=== PATIENT | female | born 1940 | race Asian ===

== ENCOUNTER 2017-10-09 03:58 | Emergency (ER) | payer OTHER ==
[~2017-10-09] VITALS: Ht 154.9 cm; Wt 62.7 kg
[~2017-10-09 03:58] MED LIST: AMOX500C PO; CYPR4TAB PO; Z.0.NO CURRENT MEDS
[2017-10-09 04:00] VITALS: BP 196/79; PULSE 80; RESP 16; TEMP 97.9; O2SAT 97
[2017-10-09] MEDS ORDERED: LISI2.5T3 PO (04:06)
[2017-10-09 04:31] VITALS: BP 190/86; PULSE 73; RESP 14; O2SAT 100
--- NOTE | 2017-10-09 05:02 | RADRPT ---
EXAM DATE/TIME: 10/09/2017 04:52 [facility] COMPARISON: No previous studies available for comparison. INDICATIONS : Cough and weakness MEDICAL HISTORY : Hypercholesterolemia. SURGICAL HISTORY : Hysterectomy. Pacemaker. ENCOUNTER: Initial ACUITY: 1 day PAIN SCORE: 7/10 LOCATION: Bilateral chest FINDINGS: Minimal left base atelectasis. No infiltrate, effusion or pneumothorax. Heart size normal. CONCLUSION: Trace left base atelectasis. Otherwise negative. Alberto Brizuela MD on October 09, 2017 at 5:01 Board Certified Radiologist. This report was verified electronically.
--- NOTE | 2017-10-09 05:14 | PD ---
HPI Chief Complaint: Cold / Flu Symptoms Time Seen by Provider: 04:36 Travel History International Travel<30 days: No Contact w/Intl Traveler<30days: No Traveled to known affect area: No History of Present Illness HPI 77 years old female complains of general malaise and weakness and elevated blood pressure. Patient has history hypertension. Patient was seen by personal physician in the past and was given prescription for lisinopril 10 mg daily. Patient states that she took lisinopril and has side effect to it. Patient stopped taking it. Patient started taking lisinopril again yesterday because elevated blood pressure. Patient denies any headache. Patient denies earache. Patient states that she has sore throat since yesterday. Patient started having a dry cough since yesterday also. Patient denies nausea vomiting. Patient states that she has intermittent left-sided upper quadrant abdominal pain and epigastric abdominal pain for the past few months. Patient denies any pain radiation. Patient states that she has reflux symptoms also. Patient denies any nausea vomiting diarrhea. Patient denies any dysuria or frequency. Patient denies any vaginal discharge or bleeding. Patient denies any back pain. PFSH Past Medical History Blood Disorders: No Cancer: No Cardiovascular Problems: No High Cholesterol: Yes Endocrine: No Immune Disorder: No Musculoskeletal: No Neurologic: No Psychiatric: No Reproductive: No Respiratory: No Menopausal: Yes : 2 Para: 2 Past Surgical History AICD: No Arteriovenous Shunt: No Hysterectomy: Yes Insulin Pump: No Joint Replacement: No Pacemaker: No Other Surgery: No Social History Alcohol Use: No Tobacco Use: No Substance Use: No Allergies-Medications (Allergen,Severity, Reaction): Coded Allergies: No Known Allergies (Verified , 08/10/13) Reported Meds & Prescriptions Reported Meds & Active Scripts Active No Active Prescriptions or Reported Medications Review of Systems General / Constitutional: No: Fever Eyes: No: Visual changes HENT: No: Headaches Cardiovascular: No: Chest Pain or Discomfort Respiratory: Positive: Cough, No: Shortness of Breath Gastrointestinal: Positive: Abdominal Pain Genitourinary: No: Dysuria Musculoskeletal: No: Pain Skin: No Rash Neurologic: No: Weakness Psychiatric: No: Depression Endocrine: No: Polydipsia Hematologic/Lymphatic: No: Easy Bruising Physical Exam Narrative GENERAL: Well-nourished, well-developed patient. SKIN: Focused skin assessment warm/dry. HEAD: Normocephalic. EYES: No scleral icterus. No injection or drainage. NECK: Supple, trachea midline. No JVD or lymphadenopathy. CARDIOVASCULAR: Regular rate and rhythm without murmurs, gallops, or rubs. RESPIRATORY: Breath sounds equal bilaterally. No accessory muscle use. GASTROINTESTINAL: Abdomen soft, nondistended. Patient has mild tenderness on palpation left upper quadrant of the abdomen. No rebound tenderness. No mass. MUSCULOSKELETAL: No cyanosis, or edema. BACK: Nontender without obvious deformity. No CVA tenderness. Neurologic exam normal. Data Data Last Documented VS Vital Signs Date Time Temp Pulse Resp B/P (MAP) Pulse Ox O2 Delivery O2 Flow Rate FiO2 10/09/17 05:36 72 14 166/72 (103) 99 Room Air 10/09/17 04:00 97.9 Orders Orders Complete Blood Count With Diff (10/09/17 04:44) Comprehensive Metabolic Panel (10/09/17 04:44) Lipase (10/09/17 04:44) Urinalysis - C+S If Indicated (10/09/17 04:44) Chest, Single Ap (10/09/17 04:44) Iv Access Insert/Monitor (10/09/17 04:44) Ecg Monitoring (10/09/17 04:44) Oximetry (10/09/17 04:44) Influenzae A/B Antigen (10/09/17 04:47) Pantoprazole (Protonix) (10/09/17 05:15) Al-Mag Hy-Si 40-40-4 Mg/Ml Liq (Mag-Al P (10/09/17 05:15) Rqziv-Trjezg-Yocmsm-Pb Liq ( Liq (10/09/17 05:15) Amlodipine (Norvasc) (10/09/17 05:15) Urine Culture (10/09/17 04:49) Labs Laboratory Tests Test 10/09/17 04:49 White Blood Count 7.5 TH/MM3 Red Blood Count 4.20 MIL/MM3 Hemoglobin 12.9 GM/DL Hematocrit 37.6 % Mean Corpuscular Volume 89.5 FL Mean Corpuscular Hemoglobin 30.7 PG Mean Corpuscular Hemoglobin Concent 34.3 % Red Cell Distribution Width 13.6 % Platelet Count 255 TH/MM3 Mean Platelet Volume 7.0 FL Neutrophils (%) (Auto) 74.8 % Lymphocytes (%) (Auto) 19.2 % Monocytes (%) (Auto) 4.5 % Eosinophils (%) (Auto) 1.3 % Basophils (%) (Auto) 0.2 % Neutrophils # (Auto) 5.6 TH/MM3 Lymphocytes # (Auto) 1.4 TH/MM3 Monocytes # (Auto) 0.3 TH/MM3 Eosinophils # (Auto) 0.1 TH/MM3 Basophils # (Auto) 0.0 TH/MM3 CBC Comment DIFF FINAL Differential Comment Urine Color LIGHT-YELLOW Urine Turbidity CLEAR Urine pH 7.0 Urine Specific [place] 1.010 Urine Protein TRACE mg/dL Urine Glucose (UA) NEG mg/dL Urine Ketones NEG mg/dL Urine Occult Blood NEG Urine Nitrite POS Urine Bilirubin NEG Urine Urobilinogen LESS THAN 2.0 MG/DL Urine Leukocyte Esterase MOD Urine RBC 2 /hpf Urine WBC 8 /hpf Urine Squamous Epithelial Cells 1 /hpf Urine Bacteria FEW /hpf Microscopic Urinalysis Comment CULTURE INDICATED Blood Urea Nitrogen 12 MG/DL Creatinine 0.67 MG/DL Random Glucose 125 MG/DL Total Protein 8.4 GM/DL Albumin 3.9 GM/DL Calcium Level 8.3 MG/DL Alkaline Phosphatase 76 U/L Aspartate Amino Transf (AST/SGOT) 32 U/L Alanine Aminotransferase (ALT/SGPT) 28 U/L Total Bilirubin 0.4 MG/DL Sodium Level 133 MEQ/L Potassium Level 3.5 MEQ/L Chloride Level 97 MEQ/L Carbon Dioxide Level 27.6 MEQ/L Anion Gap 8 MEQ/L Estimat Glomerular Filtration Rate 86 ML/MIN Lipase 128 U/L [facility] Medical Decision Making Medical Screen Exam Complete: Yes Emergency Medical Condition: Yes Interpretation(s) Last Impressions Chest X-Ray 10/09/17 0444 Signed Impressions: Service Date/Time: Monday, October 09, 2017 04:52 - CONCLUSION: Trace left base atelectasis. Otherwise negative. Alberto Brizuela MD 5:50 AM. CBC within normal limit. Sodium 133. CMP otherwise within normal limit. UA positive with WBC and few bacteria. Influenza AB antigen negative. Differential Diagnosis Differential diagnosis including URI, pharyngitis, bronchitis, pneumonia, gastritis, PUD, pancreatitis, colitis, UTI, pyelonephritis, nephrolithiasis. Narrative Course 77 years old female with sore throat, coughing, generalized malaise and weakness , recurrent left upper quadrant abdominal pain. Diagnosis Primary Impression: Viral syndrome Additional Impressions: UTI (urinary tract infection) Qualified Codes: N30.00 - Acute cystitis without hematuria Gastritis Qualified Codes: K29.00 - Acute gastritis without bleeding Patient Instructions: General Instructions Additional Instructions: Take medications as directed. Follow-up with personal physician. Return if worse. Med/Other Pt SpecificInfo: Prescription(s) given Scripts Sucralfate (Carafate) 1 Gram Tab 1 GM PO QID for Ulcer Prevention, #120 TAB 0 Refills On empty stomach Prov: Phil Goldstein MD 10/09/17 Pantoprazole (Protonix) 40 Mg Tab 40 MG PO DAILY for Reflux, #30 TAB 0 Refills Prov: Phil Goldstein MD 10/09/17 Ciprofloxacin (Cipro) 500 Mg Tab 500 MG PO BID for Infection, #14 TAB 0 Refills Prov: Phil Goldstein MD 10/09/17 Disposition: 01 DISCHARGE HOME Condition: Stable Phil Goldstein MD Oct 09, 2017 05:14
[2017-10-09] MEDS ORDERED: ATROPINE/SCOPOLAM/HYOSCYAM/PB ELIXIR 10 ML CUP PO ONE (05:15)
[2017-10-09] MEDS ORDERED: PANTOPRAZOLE SOD 40 MG DELAYED RELEASE TAB PO ONE (05:15)
[2017-10-09] MEDS ORDERED: ALUMINUM/MAGNESIUM/SIMETH 30 ML CUP PO ONE (05:15)
[2017-10-09 05:20] LABS: BACTERIA, URINE FEW /hpf; BILIRUBIN, URINE NEG (NEG); BLOOD, URINE NEG (NEG); GLUCOSE,URINE NEG (NEG); KETONE, URINE NEG (NEG); NITRITE,URINE POS (NEG); SQUAMOUS EPITHELIAL CELL URINE 1 /hpf (0-5); URINE COLOR LIGHT-YELLOW (YELLW/STRAW); URINE LEUKOCYTE ESTERASE MOD (NEG)
[2017-10-09 05:22] LABS: AUTOMATED NEUTROPHIL # 5.6 TH/MM3 (1.8-7.7); BASOPHIL % 0.2 % (0.0-2.0); EOSINOPHIL # 0.1 TH/MM3 (0-0.4); EOSINOPHIL % 1.3 % (0.0-4.0); HEMATOCRIT 37.6 % (35.0-46.0); HEMOGLOBIN 12.9 GM/DL (11.6-15.3); LYMPH % 19.2 % (9.0-44.0); LYMPHOCYTE # 1.4 TH/MM3 (1.0-4.8); MEAN CELL VOLUME 89.5 FL (80.0-100.0); MEAN CORPUSCULAR HEMOGLOBIN 30.7 PG (27.0-34.0); MEAN CORPUSCULAR HGB CONC 34.3 % (32.0-36.0); MONO % 4.5 % (0.0-8.0); MONOCYTE # 0.3 TH/MM3 (0-0.9); NEUT % 74.8 % (16.0-70.0); PLATELET COUNT 255 TH/MM3 (150-450); RED CELL DISTRIBUTION WIDTH 13.6 % (11.6-17.2); WHITE BLOOD COUNT 7.5 TH/MM3 (4.0-11.0)
[2017-10-09 05:34] LABS: ALBUMIN 3.9 GM/DL (3.4-5.0); AST (GOT) 32 U/L (15-37); BICARBONATE 27.6 MEQ/L (21.0-32.0); BLOOD UREA NITROGEN 12 MG/DL (7-18); CALCIUM 8.3 MG/DL (8.5-10.1); CHLORIDE 97 MEQ/L (98-107); CREATININE 0.67 MG/DL (0.50-1.00); GLOMERULAR FILTRATION RATE 86 ML/MIN (>89); GLUCOSE,RANDOM 125 MG/DL (74-106); LIPASE 128 U/L (73-393); SODIUM (NA) 133 MEQ/L (136-145)
[2017-10-09 05:36] VITALS: BP 166/72; PULSE 72; RESP 14; O2SAT 99
[2017-10-09 05:36] LABS: ALT (GPT) 28 U/L (10-53)
[2017-10-09 05:37] LABS: ALKALINE PHOSPHATASE 76 U/L (45-117); TOTAL BILIRUBIN ADULT 0.4 MG/DL (0.2-1.0); TOTAL PROTEIN 8.4 GM/DL (6.4-8.2)
[2017-10-09] MEDS ORDERED: CARA1TAB6 PO (06:04)
[2017-10-09] MEDS ORDERED: CIPR-9 PO (06:04)
[2017-10-09] MEDS ORDERED: PROT40TA PO (06:04)
== END 2017-10-09 06:21 | disposition home or self-care (01) ==
LOC: NEPC 03:58
DX: B34.9 Viral infection, unspecified (principal); N30.00 Acute cystitis without hematuria; B96.20 Unspecified Escherichia coli [E. coli] as the cause of diseases classified elsewhere; K29.00 Acute gastritis without bleeding; I10 Essential (primary) hypertension; E78.00 Pure hypercholesterolemia, unspecified
CPT/HCPCS: 71010; 80053; 81001; 83690; 85025; 87077; 87086; 87186; 87804; 99284

== ENCOUNTER 2017-10-13 04:07 | Observation (INO) | payer OTHER ==
[~2017-10-13] VITALS: Ht 154.9 cm; Wt 63.0 kg
[2017-10-13] VITALS (9 sets, daily range): BP systolic 90–212; BP diastolic 45–86; PULSE 73–110; RESP 16–18; TEMP 97.8–99.3; O2SAT 97–100
[~2017-10-13 04:07] MED LIST changes: -AMOX500C PO; +CARA1TAB6 PO; +CIPR-9 PO; -CYPR4TAB PO; +PROT40TA PO; -Z.0.NO CURRENT MEDS
[2017-10-13] MEDS ORDERED: SODIUM CHLORIDE 0.9% FLUSH 10 ML FLUSH IVF PRN (04:45)
[2017-10-13] MEDS ORDERED: hydrALAZINE HCL 20 MG/ML VIAL IV PUSH ONE (05:15)
[2017-10-13 05:16] LABS: AUTOMATED NEUTROPHIL # 4.8 TH/MM3 (1.8-7.7); BASOPHIL % 0.3 % (0.0-2.0); EOSINOPHIL # 0.1 TH/MM3 (0-0.4); HEMATOCRIT 38.8 % (35.0-46.0); HEMOGLOBIN 13.3 GM/DL (11.6-15.3); LYMPH % 24.1 % (9.0-44.0); LYMPHOCYTE # 1.8 TH/MM3 (1.0-4.8); MEAN CELL VOLUME 89.7 FL (80.0-100.0); MEAN CORPUSCULAR HEMOGLOBIN 30.7 PG (27.0-34.0); MEAN CORPUSCULAR HGB CONC 34.2 % (32.0-36.0); MEAN PLATELET VOLUME 7.1 FL (7.0-11.0); MONO % 8.3 % (0.0-8.0); MONOCYTE # 0.6 TH/MM3 (0-0.9); NEUT % 65.3 % (16.0-70.0); PLATELET COUNT 268 TH/MM3 (150-450); RED BLOOD COUNT 4.33 MIL/MM3 (4.00-5.30); RED CELL DISTRIBUTION WIDTH 13.2 % (11.6-17.2); WHITE BLOOD COUNT 7.3 TH/MM3 (4.0-11.0)
--- NOTE | 2017-10-13 05:26 | PD ---
HPI Chief Complaint: Cardiac Complaint Time Seen by Provider: 04:21 Travel History International Travel<30 days: No Contact w/Intl Traveler<30days: No Traveled to known affect area: No History of Present Illness HPI This is a 77-year-old female history of hypertension, presents today with complaints of high blood pressure and palpitations. The patient was seen here last week for the same thing. At that time she was started on amlodipine which brought her blood pressure down. Recommendation was that she follow up with her primary care doctor for further blood pressure control. The patient denies any chest pressure chest pain. The patient reports a pulling sensation in her abdomen but states that that's been present for 2 years. There is no dizziness or headache. There is no numbness or tingling to her extremities. The patient was prescribed lisinopril) primary care physician however was taken off of it because her blood pressure had been normal. She has not wanted to restart her lisinopril. There are no other complaints time my examination. PFSH Past Medical History Blood Disorders: No Cancer: No Cardiovascular Problems: No High Cholesterol: Yes Endocrine: No Hypertension: Yes Immune Disorder: No Musculoskeletal: No Neurologic: No Psychiatric: No Reproductive: No Respiratory: No ?: Not Menopausal: Yes : 2 Para: 2 Past Surgical History AICD: No Arteriovenous Shunt: No Hysterectomy: Yes Insulin Pump: No Joint Replacement: No Pacemaker: No Other Surgery: No Social History Alcohol Use: No Tobacco Use: No Substance Use: No Allergies-Medications (Allergen,Severity, Reaction): Coded Allergies: No Known Allergies (Verified Allergy, Unknown, 10/13/17) Reported Meds & Prescriptions Reported Meds & Active Scripts Active Carafate (Sucralfate) 1 Gram Tab 1 Gm PO QID On empty stomach Protonix (Pantoprazole Sodium) 40 Mg Tab 40 Mg PO DAILY Review of Systems Except as stated in HPI: all other systems reviewed are Neg General / Constitutional: No: Fever, Chills HENT: No: Headaches, Lightheadedness Cardiovascular: Positive: Palpitations, No: Chest Pain or Discomfort Respiratory: No: Cough, Shortness of Breath Gastrointestinal: Positive: Abdominal Pain (tightening sensation to the abdomen 2 year), No: Nausea, Vomiting Genitourinary: No: Frequency, Dysuria Musculoskeletal: No: Weakness, Pain Neurologic: No: Weakness, Dizziness, Headache, Change in Mentation Physical Exam Narrative GENERAL: Well developed well-nourished female in no acute respiratory distress. SKIN: Focused skin assessment warm/dry. HEAD: Atraumatic. Normocephalic. EYES: Extraocular muscles were intact.. No scleral icterus. No injection or drainage. ENT: No nasal bleeding or discharge. Mucous membranes pink and moist. NECK: Trachea midline. Supple. CARDIOVASCULAR: Regular rate and rhythm. No murmur appreciated. RESPIRATORY: No accessory muscle use. Clear to auscultation. Breath sounds equal bilaterally. GASTROINTESTINAL: Abdomen soft, non-tender, nondistended. Hepatic and splenic margins not palpable. MUSCULOSKELETAL: No obvious deformities. No clubbing. No cyanosis. No edema. NEUROLOGICAL: Awake and alert. No obvious cranial nerve deficits. Motor grossly within normal limits. Normal speech. Data Data Last Documented VS Vital Signs Date Time Temp Pulse Resp B/P (MAP) Pulse Ox O2 Delivery O2 Flow Rate FiO2 10/13/17 06:00 97.8 87 16 90/45 (60) 100 Room Air Orders Orders Basic Metabolic Panel (Bmp) (10/13/17 04:44) Ckmb (Isoenzyme) Profile (10/13/17 04:44) Complete Blood Count With Diff (10/13/17 04:44) Magnesium (Mg) (10/13/17 04:44) Prothrombin Time / Inr (Pt) (10/13/17 04:44) Act Partial Throm Time (Ptt) (10/13/17 04:44) Troponin I (10/13/17 04:44) Chest, Single Ap (10/13/17 04:44) Ecg Monitoring (10/13/17 04:44) Bilateral Bp Monitoring (10/13/17 04:44) Iv Access Insert/Monitor (10/13/17 04:44) Oximetry (10/13/17 04:44) Oxygen Administration (10/13/17 04:44) Sodium Chloride 0.9% Flush (Ns Flush) (10/13/17 04:45) Hydralazine Inj (Apresoline Inj) (10/13/17 05:15) CKMB (10/13/17 04:50) CKMB% (10/13/17 04:50) Sodium Chlor 0.9% 1000 Ml Inj (Ns 1000 M (10/13/17 06:15) Place In Observation (10/13/17 ) Vital Signs (Adult) Q4H (10/13/17 06:05) Activity Oob With Assistance (10/13/17 06:05) Diet Heart Healthy (10/13/17 Breakfast) Sodium Chloride 0.9% Flush (Ns Flush) (10/13/17 06:15) Sodium Chloride 0.9% Flush (Ns Flush) (10/13/17 09:00) Ondansetron Inj (Zofran Inj) (10/13/17 06:15) Basic Metabolic Panel (Bmp) (10/14/17 06:00) Complete Blood Count With Diff (10/14/17 06:00) Enoxaparin Inj (Lovenox Inj) (10/13/17 08:00) Acetaminophen (Tylenol) (10/13/17 06:15) Acetamin-Hydrocod 325-5 Mg ([place] 5-325 (10/13/17 06:15) Naloxone Inj (Narcan Inj) (10/13/17 06:15) Docusate Sodium-Senna (Ambar-Colace) (10/13/17 09:00) Magnesium Hydroxide Liq (Milk Of Magnesi (10/13/17 06:15) Sennosides (Senokot) (10/13/17 06:15) Bisacodyl Supp (Dulcolax Supp) (10/13/17 06:15) Admit Order (Ed Use Only) (10/13/17 06:13) Pantoprazole (Protonix) (10/13/17 09:00) Sucralfate (Carafate) (10/13/17 09:00) Labs Laboratory Tests Test 10/13/17 04:50 White Blood Count 7.3 TH/MM3 Red Blood Count 4.33 MIL/MM3 Hemoglobin 13.3 GM/DL Hematocrit 38.8 % Mean Corpuscular Volume 89.7 FL Mean Corpuscular Hemoglobin 30.7 PG Mean Corpuscular Hemoglobin Concent 34.2 % Red Cell Distribution Width 13.2 % Platelet Count 268 TH/MM3 Mean Platelet Volume 7.1 FL Neutrophils (%) (Auto) 65.3 % Lymphocytes (%) (Auto) 24.1 % Monocytes (%) (Auto) 8.3 % Eosinophils (%) (Auto) 2.0 % Basophils (%) (Auto) 0.3 % Neutrophils # (Auto) 4.8 TH/MM3 Lymphocytes # (Auto) 1.8 TH/MM3 Monocytes # (Auto) 0.6 TH/MM3 Eosinophils # (Auto) 0.1 TH/MM3 Basophils # (Auto) 0.0 TH/MM3 CBC Comment DIFF FINAL Differential Comment Prothrombin Time 10.3 SEC Prothromb Time International Ratio 1.0 RATIO Activated Partial Thromboplast Time 26.2 SEC Blood Urea Nitrogen 13 MG/DL Creatinine 0.69 MG/DL Random Glucose 118 MG/DL Calcium Level 9.0 MG/DL Magnesium Level 2.0 MG/DL Sodium Level 134 MEQ/L Potassium Level 3.6 MEQ/L Chloride Level 98 MEQ/L Carbon Dioxide Level 26.5 MEQ/L Anion Gap 10 MEQ/L Estimat Glomerular Filtration Rate 83 ML/MIN Total Creatine Kinase 279 U/L Creatine Kinase MB 6.1 NG/ML Creatine Kinase MB % 2.2 % Troponin I LESS THAN 0.02 NG/ML MDM Medical Decision Making Medical Screen Exam Complete: Yes Emergency Medical Condition: Yes Differential Diagnosis Hypertensive urgency versus emergency versus ACS versus metabolic derangement Narrative Course 77-year-old female with history of hypertension, presents here for the second time this week for uncontrolled hypertension. The patient was seen last week by Dr. Goldstein and given amlodipine. At that time it seemed to decrease her blood pressure. She was encouraged to follow up with her primary care physician. She has not as of yet. The patient presents again today with uncontrolled hypertension. Patient has a history of chronic abdominal discomfort. She denies this pain but states that she feels a tugging sensation in her left upper abdomen. There is no focal deficits noted on exam. The patient has been given hydralazine, 20 mg I V times one dose. She's blood pressure did decrease into the 130s over 60s. Given the fact the patient has been here 2 times the last 5 days, she'll be admitted for blood pressure control. Case was discussed with Dr. Susan Harkins, who agrees with the observation admission and blood pressure control. Diagnosis Primary Impression: Uncontrolled hypertension Additional Impression: elevated CK MB. Admitting Information Admitting Physician Requests: Observation Guille Mayo MD Oct 13, 2017 05:26
--- NOTE | 2017-10-13 05:30 | RADRPT ---
EXAM DATE/TIME: 10/13/2017 04:55 [facility] COMPARISON: CHEST SINGLE AP, October 09, 2017, 4:52. INDICATIONS : Shortness of breath. MEDICAL HISTORY : Hypercholesterolemia. SURGICAL HISTORY : Hysterectomy. ENCOUNTER: Subsequent ACUITY: 4 - 6 days PAIN SCORE: 0/10 LOCATION: Bilateral chest FINDINGS: A single view of the chest demonstrates the lungs to be symmetrically aerated without evidence of mas s, infiltrate or effusion. The cardiomediastinal contours are unremarkable. Osseous structures are intact. CONCLUSION: No acute disease. Timothy Allen Jr., MD on October 13, 2017 at 5:29 Board Certified Radiologist. This report was verified electronically.
[2017-10-13 05:49] LABS: BICARBONATE 26.5 MEQ/L (21.0-32.0); BLOOD UREA NITROGEN 13 MG/DL (7-18); CHLORIDE 98 MEQ/L (98-107); CREATININE 0.69 MG/DL (0.50-1.00); GLOMERULAR FILTRATION RATE 83 ML/MIN (>89); GLUCOSE,RANDOM 118 MG/DL (74-106); SODIUM (NA) 134 MEQ/L (136-145)
[2017-10-13 05:54] LABS: TROPONIN I LESS THAN 0.02 NG/ML (0.02-0.05)
[2017-10-13 06:00] LABS: PROTHROMBIN TIME - PATIENT 10.3 SEC (9.8-11.6)
[2017-10-13] MEDS ORDERED: SENNOSIDES 8.6 MG TAB PO PRN (06:15)
[2017-10-13] MEDS ORDERED: SODIUM CHLORIDE 0.9% FLUSH 10 ML FLUSH IV FLUSH PRN (06:15)
[2017-10-13] MEDS ORDERED: BISACODYL 10 MG SUPP RECTAL PRN (06:15)
[2017-10-13] MEDS ORDERED: ONDANSETRON HCL 4 MG/2 ML VIAL IVP PRN (06:15)
[2017-10-13] MEDS ORDERED: SODIUM CHLOR 0.9% 1000 ML INJ 1,000 ML IV ONE (06:15)
[2017-10-13] MEDS ORDERED: MAGNESIUM HYDROXIDE SUSP 30 ML CUP PO PRN (06:15)
[2017-10-13] MEDS ORDERED: ACETAMINOPHEN/HYDROcodone 325 MG/5 MG TAB PO PRN (06:15)
[2017-10-13] MEDS ORDERED: NALOXONE HCL 0.4 MG/ML AMP IV PUSH PRN (06:15)
[2017-10-13] MEDS ORDERED: ACETAMINOPHEN 325 MG TAB PO PRN (06:15)
[2017-10-13] MEDS ORDERED: SUCRALFATE 1 GM TAB PO SCH (08:00)
--- NOTE | 2017-10-13 08:38 | HHI.HP ---
HPI Service [facility] Hospitalists Primary Care Physician Mark Roberts MD Admission Diagnosis uncontrolled hypertension, Diagnoses: Chief Complaint: Palpitations Nausea Travel History International Travel<30 Days: No Contact w/Intl Traveler <30 Da: No Traveled to Known Affected Are: No History of Present Illness Written by Mel Cassidy, acting as scribe for Dr. Farley on 10/13/17 at 08: 18. This is a 77yo female with a PMHX of hypertension medication noncompliant as patient states all medications "make her black out" who presents to [facility] ED with complaints of palpitations, nausea and elevated blood pressure. Patient states she was not feeling well yesterday. She's had a reductive cough for the past several weeks. She reports history she developed racing heartbeat and nausea. She began taking her blood pressure at home which she frequently does and was found have a systolic BP of 226 prompting her to come into the ED. She denies any associated chest pain or shortness of breath. She denies any episode of vomiting. She denies any dizziness, headache or vision changes. Additionally patient reports mild left-sided abdominal pain which has been present for 2 years and not associated with any complaints of diarrhea or constipation. Patient was evaluated in the ED on October 09 for viral syndrome and was prescribed ciprofloxacin. In the ED today, patient's blood pressure was 212/85 and she was given IV hydralazine with improvement in blood pressure and actually became hypotensive with a blood pressure of 90/45. She denies taking any qoab-xoy-thhercj cough medication, supplement or herbal medication. She has an appointment to see her primary care physician on Tuesday. Review of Systems Except as stated in HPI: all other systems reviewed are Neg Past Family Social History Past Medical History Hypertension Medication noncompliance Past Surgical History Hysterectomy Reported Medications Carafate (Sucralfate) 1 Gram Tab 1 Gm PO QID On empty stomach Protonix (Pantoprazole Sodium) 40 Mg Tab 40 Mg PO DAILY Allergies: Coded Allergies: No Known Allergies (Verified Allergy, Unknown, 10/13/17) Active Ordered Medications Current Medications Medications (Trade) Dose Ordered Sig/Delmer Route Start Time Stop Time Status Last Admin (NS Flush) 2 ml UNSCH PRN IV FLUSH 10/13/17 06:15 (NS Flush) 2 ml BID IV FLUSH 10/13/17 09:00 (Zofran Inj) 4 mg Q6H PRN IVP 10/13/17 06:15 (Lovenox Inj) 40 mg Q24H SQ 10/13/17 08:00 (Tylenol) 650 mg Q6H PRN PO 10/13/17 06:15 ([place] 5-325 Mg) 1 tab Q4H PRN PO 10/13/17 06:15 (Narcan Inj) 0.4 mg UNSCH PRN IV PUSH 10/13/17 06:15 (Ambar-Colace) 1 tab BID PO 10/13/17 09:00 (Milk Of Mag[place] Liq) 30 ml Q12H PRN PO 10/13/17 06:15 (Senokot) 17.2 mg Q12H PRN PO 10/13/17 06:15 (Dulcolax Supp) 10 mg DAILY PRN RECTAL 10/13/17 06:15 (Protonix) 40 mg DAILY PO 10/13/17 09:00 (Norvasc) 5 mg DAILY PO 10/13/17 09:00 Family History Hypertension Social History Patient denies any tobacco use, alcohol consumption or illicit drug use. Physical Exam Vital Signs Vital Signs Date Time Temp Pulse Resp B/P (MAP) Pulse Ox O2 Delivery O2 Flow Rate FiO2 10/13/17 07:04 97.9 97 18 127/59 (81) 99 10/13/17 06:52 10/13/17 06:34 94 16 125/59 (81) 97 Room Air 10/13/17 06:00 97.8 87 16 90/45 (60) 100 Room Air 10/13/17 05:34 87 16 136/59 (84) 100 Room Air 10/13/17 05:00 73 16 206/86 (126) 100 Room Air 10/13/17 04:10 97.9 95 16 212/85 (127) 99 Physical Exam GENERAL: This is a well-nourished, well-developed female patient, in no apparent distress. SKIN: No rashes, ecchymoses or lesions. Cool and dry. HEAD: Atraumatic. Normocephalic. No temporal or scalp tenderness. EYES: Pupils equal round and reactive. Extraocular motions intact. No scleral icterus. No injection or drainage. ENT: Nose without bleeding or purulent drainage. Throat without erythema, tonsillar hypertrophy or exudate. Uvula midline. Airway patent. NECK: Trachea midline. No lymphadenopathy. Supple, nontender, no meningeal signs. CARDIOVASCULAR: Regular rate and rhythm without murmurs, gallops, or rubs. RESPIRATORY: Clear to auscultation. Breath sounds equal bilaterally. No wheezes , rales, or rhonchi. GASTROINTESTINAL: Abdomen soft, non-tender, nondistended. No hepato-splenomegaly , or palpable masses. No guarding. MUSCULOSKELETAL: Extremities without clubbing, cyanosis, or edema. No joint tenderness, effusion, or edema noted. No calf tenderness. NEUROLOGICAL: Awake and alert. Cranial nerves II through XII grossly intact. Motor and sensory grossly within normal limits. Five out of 5 muscle strength in all muscle groups. No focal neurologic finding appreciated. Normal speech. Laboratory Laboratory Tests Test 10/13/17 04:50 White Blood Count 7.3 Red Blood Count 4.33 Hemoglobin 13.3 Hematocrit 38.8 Mean Corpuscular Volume 89.7 Mean Corpuscular Hemoglobin 30.7 Mean Corpuscular Hemoglobin Concent 34.2 Red Cell Distribution Width 13.2 Platelet Count 268 Mean Platelet Volume 7.1 Neutrophils (%) (Auto) 65.3 Lymphocytes (%) (Auto) 24.1 Monocytes (%) (Auto) 8.3 Eosinophils (%) (Auto) 2.0 Basophils (%) (Auto) 0.3 Neutrophils # (Auto) 4.8 Lymphocytes # (Auto) 1.8 Monocytes # (Auto) 0.6 Eosinophils # (Auto) 0.1 Basophils # (Auto) 0.0 CBC Comment DIFF FINAL Differential Comment Prothrombin Time 10.3 Prothromb Time International Ratio 1.0 Activated Partial Thromboplast Time 26.2 Blood Urea Nitrogen 13 Creatinine 0.69 Random Glucose 118 Calcium Level 9.0 Magnesium Level 2.0 Sodium Level 134 Potassium Level 3.6 Chloride Level 98 Carbon Dioxide Level 26.5 Anion Gap 10 Estimat Glomerular Filtration Rate 83 Total Creatine Kinase 279 Creatine Kinase MB 6.1 Creatine Kinase MB % 2.2 Troponin I LESS THAN 0.02 Result Diagram: 10/13/17 0450 10/13/17 045 Imaging Last Impressions Chest X-Ray 10/13/174 Signed Impressions: Service Date/Time: October 04:55 - CONCLUSION: No acute disease. MD Wagner Clements Jr. VTE Risk Assessment Wagner VTE Risk Assessment: Mod/High Risk (score >= 2) Caprini Risk Assessment Model Point Value = 1 Point Value = 2 Point Value = 3 Point Value = 5 Age 41-60 Minor surgery BMI > 25 kg/m2 Swollen legs Varicose veins or History of unexplained or recurrent spontaneous Oral contraceptives or hormone replacement Sepsis (< 1 month) Serious lung disease, including pneumonia (< 1 month) Abnormal pulmonary function Acute myocardial infarction Congestive heart failure (< 1 month) History of inflammatory bowel disease Medical patient at bed rest Age 61-74 Arthroscopic surgery Major open surgery (> 45 min) Laparoscopic surgery (> 45 min) Malignancy Confined to bed (> 72 hours) Immobilizing plaster cast Central venous access Age >= 75 History of VTE Family history of VTE Factor V Leiden Prothrombin [id number] Lupus anticoagulant Anticardiolipin antibodies Elevated serum homocysteine Heparin-induced thrombocytopenia Other congenital or acquired thrombophilia Stroke (< 1 month) Elective arthroplasty Hip, pelvis, or leg fracture Acute spinal cord injury (< 1 month) Prophylaxis Regimen Total Risk Factor Score Risk Level Prophylaxis Regimen 0-1 Low Early ambulation 2 Moderate Order ONE of the following: *Sequential Compression Device (SCD) *Heparin 5000 units SQ BID 3-4 Higher Order ONE of the following medications: *Heparin 5000 units SQ TID *Enoxaparin/Lovenox 40 mg SQ daily (WT < 150 kg, CrCl > 30 mL/min) *Enoxaparin/Lovenox 30 mg SQ daily (WT < 150 kg, CrCl > 10-29 mL/min) *Enoxaparin/Lovenox 30 mg SQ BID (WT < 150 kg, CrCl > 30 mL/min) AND/OR *Sequential Compression Device (SCD) 5 or more Highest Order ONE of the following medications: *Heparin 5000 units SQ TID (Preferred with Epidurals) *Enoxaparin/Lovenox 40 mg SQ daily (WT < 150 kg, CrCl > 30 mL/min) *Enoxaparin/Lovenox 30 mg SQ daily (WT < 150 kg, CrCl > 10-29 mL/min) *Enoxaparin/Lovenox 30 mg SQ BID (WT < 150 kg, CrCl > 30 mL/min) AND *Sequential Compression Device (SCD) Assessment and Plan Assessment and Plan 77yo female with a PMHX of hypertension medication noncompliant as patient states all medications "makes her black out" who presents to [facility] ED with complaints of palpitations, nausea and elevated blood pressure. Hypertensive urgency Hx of hypertension, medication noncompliant - BP improved following IV hydralazine given in the ED. Will begin Norvasc 5 mg daily. Continue to monitor BP and adjust treatment accordingly. Patient will need to follow-up with her primary care physician per her previously scheduled appointment on Tuesday. - patient with no complaints of chest pain. Troponin <0.02. Hyponatremia - mild, asymptomatic - treated with IVF - monitor DVT prophylaxis - Lovenox 40mg daily the above note was scribed by Ms. Mel Cassidy ( MILY). I attest that I had a [id number] encounter with the patient on the same day, and personally performed the physical exam and medical decision making and I reviewed the findings and plan with the patient and her son at the bedside. Discussed Condition With Patient, son Mel Cassidy Oct 13, 2017 08:38 Leeanne Farley MD Oct 13, 2017 10:02
[2017-10-13] MEDS: PANTOPRAZOLE SOD 40 MG DELAYED RELEASE TAB PO SCH (09:22)
[2017-10-13] MEDS: amLODIPine BESYLATE 5 MG TAB PO SCH (09:22)
[2017-10-13] MEDS: DOCUSATE SODIUM 50 MG/SENNA 8.6 MG TAB PO SCH ×2 (09:22→21:00)
[2017-10-13] MEDS: ENOXAPARIN SODIUM 40 MG/0.4 ML SYRINGE SQ SCH (09:23)
[2017-10-13] MEDS: SODIUM CHLORIDE 0.9% FLUSH 10 ML FLUSH IV FLUSH SCH ×2 (09:23→21:00)
[2017-10-13 09:35] LABS: BACTERIA, URINE RARE /hpf; BILIRUBIN, URINE NEG (NEG); BLOOD, URINE NEG (NEG); GLUCOSE,URINE NEG (NEG); KETONE, URINE NEG (NEG); NITRITE,URINE NEG (NEG); PH, URINE 7.5 (5.0-8.5); SQUAMOUS EPITHELIAL CELL URINE 3 /hpf (0-5); URINE COLOR LIGHT-YELLOW (YELLW/STRAW); URINE LEUKOCYTE ESTERASE MOD (NEG)
[2017-10-14 04:47] VITALS: BP 161/63; PULSE 78; RESP 18; TEMP 98; O2SAT 96
[2017-10-14 07:35] LABS: BASOPHIL % 0.4 % (0.0-2.0); EOSINOPHIL # 0.2 TH/MM3 (0-0.4); EOSINOPHIL % 2.4 % (0.0-4.0); HEMATOCRIT 37.1 % (35.0-46.0); HEMOGLOBIN 12.7 GM/DL (11.6-15.3); LYMPH % 31.5 % (9.0-44.0); LYMPHOCYTE # 2.2 TH/MM3 (1.0-4.8); MEAN CELL VOLUME 90.7 FL (80.0-100.0); MEAN CORPUSCULAR HEMOGLOBIN 31.1 PG (27.0-34.0); MEAN CORPUSCULAR HGB CONC 34.3 % (32.0-36.0); MEAN PLATELET VOLUME 7.4 FL (7.0-11.0); MONO % 9.4 % (0.0-8.0); MONOCYTE # 0.7 TH/MM3 (0-0.9); NEUT % 56.3 % (16.0-70.0); PLATELET COUNT 272 TH/MM3 (150-450); RED CELL DISTRIBUTION WIDTH 13.7 % (11.6-17.2)
[2017-10-14 07:46] LABS: BICARBONATE 26.2 MEQ/L (21.0-32.0); CALCIUM 8.6 MG/DL (8.5-10.1); CREATININE 0.66 MG/DL (0.50-1.00)
[2017-10-14 08:15] VITALS: BP 143/75; PULSE 86; RESP 20; TEMP 98.2; O2SAT 97
[2017-10-14] MEDS: amLODIPine BESYLATE 5 MG TAB PO SCH (09:06)
[2017-10-14] MEDS: DOCUSATE SODIUM 50 MG/SENNA 8.6 MG TAB PO SCH (09:06)
[2017-10-14] MEDS: PANTOPRAZOLE SOD 40 MG DELAYED RELEASE TAB PO SCH (09:06)
[2017-10-14] MEDS: ENOXAPARIN SODIUM 40 MG/0.4 ML SYRINGE SQ SCH (09:07)
[2017-10-14] MEDS: SODIUM CHLORIDE 0.9% FLUSH 10 ML FLUSH IV FLUSH SCH (09:08)
[2017-10-14] MEDS ORDERED: AMLO5 PO (10:29)
--- NOTE | 2017-10-14 10:29 | HHI.PR ---
Subjective Remarks in no acute distress. had on and off dizziness yesterday. d/w the family at the bedside. Objective Vitals Vital Signs Date Time Temp Pulse Resp B/P (MAP) Pulse Ox O2 Delivery O2 Flow Rate FiO2 10/14/17 08:15 98.2 86 20 143/75 (97) 97 10/14/17 04:47 98.0 78 18 161/63 (95) 96 10/13/17 21:13 97.9 90 18 145/64 (91) 97 10/13/17 15:54 99.3 77 18 148/63 (91) 97 10/13/17 12:12 98.8 110 18 145/65 (91) 97 I/O 10/13/17 10/13/17 10/13/17 10/14/17 10/14/17 10/14/17 07:00 15:00 23:00 07:00 15:00 23:00 Intake Total 1000 ml 120 ml Balance 1000 ml 120 ml Intake Oral 120 ml IV Total 1000 ml Result Diagram: 10/14/1762610/14/17626 Imaging Last Impressions Chest X-Ray 10/13/17 0444 Signed Impressions: Service Date/Time: October 04:55 - CONCLUSION: No acute disease. Timothy Allen Jr., MD Objective Remarks GENERAL: This is a well-nourished, well-developed patient, in no apparent distress. CARDIOVASCULAR: Regular rate and regular rhythm without murmurs, gallops, or rubs. RESPIRATORY: Clear to auscultation. Breath sounds equal bilaterally. No wheezes , rales, or rhonchi. GASTROINTESTINAL: Abdomen soft, non-tender, nondistended. Normal, active bowel sounds MUSCULOSKELETAL: Extremities without clubbing, cyanosis, or edema. NEURO: Alert & Oriented x4 to person, place, time, situation. Moves all ext x4 Medications and IVs Inpatient Medications Acetaminophen (Tylenol) 650 mg Q6H PRN PO headache/fever/pain1-2; Start at 06:15 Acetaminophen/ Hydrocodone Bitart ([place] 5-325 Mg) 1 tab Q4H PRN PO PAIN SCALE 3 TO 10; Start 10/13/17 at 06:15 Amlodipine Besylate (Norvasc) 5 mg DAILY PO Last administered on 10/14/17at 09:06 ; Start 10/13/17 at 09:00 Bisacodyl (Dulcolax Supp) 10 mg DAILY PRN RECTAL SEVERE CONSITIPATION; Start at 06:15 Enoxaparin Sodium (Lovenox Inj) 40 mg Q24H SQ Last administered on 10/14/17at 09: 07; Start 10/13/17 at 08:00 Hydralazine HCl (Apresoline Inj) 20 mg ONCE ONCE IV PUSH Last administered on 10/13/17at 05:16; Start 10/13/17 at 05:15; Stop 10/13/17 at 05:16; Status DC Magnesium Hydroxide (Milk Of Magnesia Liq) 30 ml Q12H PRN PO Mild constipation ; Start 10/13/17 at 06:15 Naloxone HCl (Narcan Inj) 0.4 mg UNSCH PRN IV PUSH SEE LABEL COMMENTS; Start at 06:15 Ondansetron HCl (Zofran Inj) 4 mg Q6H PRN IVP NAUSEA OR VOMITING; Start at 06:15 Pantoprazole Sodium (Protonix) 40 mg DAILY PO Last administered on 10/14/17at 09: 06; Start 10/13/17 at 09:00 Senna/Docusate Sodium (Ambar-Colace) 1 tab BID PO Last administered on 10/14/17at 09:06; Start 10/13/17 at 09:00 Sennosides (Senokot) 17.2 mg Q12H PRN PO Moderate constipation; Start 10/13/17 at 06:15 Sodium Chloride (NS Flush) 2 ml BID IV FLUSH Last administered on 10/14/17at 09: 08; Start 10/13/17 at 09:00 Sucralfate (Carafate) 1 gm ACHS PO ; Start 10/13/17 at 08:00; Stop 10/13/17 at 08: 03; Status DC A/P Assessment and Plan Hypertensive urgency- BP has much improved. Hx of hypertension, medication noncompliant - stared Norvasc 5 mg daily. Continue to monitor BP and adjust treatment accordingly. Patient will need to follow-up with her primary care physician per her previously scheduled appointment on Tuesday. - patient with no complaints of chest pain. Troponin <0.02. -will get CT head due to on and off dizziness/ headache and elevated BP. Hyponatremia - mild, asymptomatic - treated with IVF - monitor DVT prophylaxis - Lovenox 40mg daily Discharge Planning dc home today if CT head negative. f/u; pcp upon discharge. Leeanne Farley MD Oct 14, 2017 10:29
--- NOTE | 2017-10-14 11:33 | RADRPT ---
EXAM DATE/TIME: 10/14/2017 11:22 [place] COMPARISON: No previous studies available for comparison. INDICATIONS : Dizziness RADIATION DOSE: 36.57 CTDIvol (mGy) MEDICAL HISTORY : Hypertension. SURGICAL HISTORY : Hysterectomy. ENCOUNTER: Initial ACUITY: 1 day PAIN SCALE: 0/10 LOCATION: cranial TECHNIQUE: Multiple contiguous axial images were obtained of the head. Using automated exposure control and adj ustment of the mA and/or kV according to patient size, radiation dose was kept as low as reasonably a chievable to obtain optimal diagnostic quality images. DICOM format image data is available electro nically for review and comparison. FINDINGS: CEREBRUM: The ventricles are normal for age. No evidence of midline shift, mass lesion, hemorrhage or acute in farction. No extra-axial fluid collections are seen. POSTERIOR FOSSA: The cerebellum and brainstem are intact. The 4th ventricle is midline. The cerebellopontine angle i s unremarkable. EXTRACRANIAL: The visualized portion of the orbits is intact. SKULL: The calvaria is intact. No evidence of skull fracture. CONCLUSION: 1. No evidence of acute intracranial pathology. No masses are identified. Basilio Loo MD on October 14, 2017 at 11:30 Board Certified Radiologist. This report was verified electronically.
[2017-10-14 12:30] VITALS: BP 143/75; PULSE 90; RESP 20; TEMP 98.7; O2SAT 95
--- NOTE | 2017-10-14 14:36 | HHI.DS ---
Discharge Summary Admission Date Oct 13, 2017 at 06:15 Discharge Date: Oct 14, 2017 Admitting Diagnosis uncontrolled hypertension, (1) Uncontrolled hypertension ICD Code: I10 - Essential (primary) hypertension Diagnosis: Principal Status: Acute Procedures none Brief History - From Admission Written by Mel Cassidy, acting as scribe for Dr. Farley on 10/13/17 at 08: 18. This is a 77yo female with a PMHX of hypertension medication noncompliant as patient states all medications "make her black out" who presents to [facility] ED with complaints of palpitations, nausea and elevated blood pressure. Patient states she was not feeling well yesterday. She's had a reductive cough for the past several weeks. She reports history she developed racing heartbeat and nausea. She began taking her blood pressure at home which she frequently does and was found have a systolic BP of 226 prompting her to come into the ED. She denies any associated chest pain or shortness of breath. She denies any episode of vomiting. She denies any dizziness, headache or vision changes. Additionally patient reports mild left-sided abdominal pain which has been present for 2 years and not associated with any complaints of diarrhea or constipation. Patient was evaluated in the ED on October 09 for viral syndrome and was prescribed ciprofloxacin. In the ED today, patient's blood pressure was 212/85 and she was given IV hydralazine with improvement in blood pressure and actually became hypotensive with a blood pressure of 90/45. She denies taking any kjxb-abh-sdcbvbi cough medication, supplement or herbal medication. She has an appointment to see her primary care physician on Tuesday. CBC/BMP: 10/14/17 0627 10/14/17 0627 Significant Findings Laboratory Tests Test 10/13/17 04:50 10/13/17 09:00 10/14/17 06:27 Monocytes (%) (Auto) 8.3 % (0.0-8.0) 9.4 % (0.0-8.0) Random Glucose 118 MG/DL (74-106) Sodium Level 134 MEQ/L (136-145) Estimat Glomerular Filtration Rate 83 ML/MIN (>89) 87 ML/MIN (>89) Total Creatine Kinase 279 U/L (26-192) Creatine Kinase MB 6.1 NG/ML (0.5-3.6) Troponin I LESS THAN 0.02 NG/ML Urine Protein 30 mg/dL (NEG-TRACE) Urine Leukocyte Esterase MOD (NEG) Urine WBC 7 /hpf (0-5) Urine Bacteria RARE /hpf (NONE) PE at Discharge GENERAL: This is a well-nourished, well-developed patient, in no apparent distress. CARDIOVASCULAR: Regular rate and regular rhythm without murmurs, gallops, or rubs. RESPIRATORY: Clear to auscultation. Breath sounds equal bilaterally. No wheezes , rales, or rhonchi. GASTROINTESTINAL: Abdomen soft, non-tender, nondistended. Normal, active bowel sounds MUSCULOSKELETAL: Extremities without clubbing, cyanosis, or edema. NEURO: Alert & Oriented x4 to person, place, time, situation. Moves all ext x4 Hospital Course patient was admitted with hypertensive urgency. she was started on Amlodipine. BP has improved . she was advised to have a close follow-up with her PCP upon discharge. Pt Condition on Discharge: Fair Discharge Disposition: Discharge Home Discharge Time: <= 30 minutes Discharge Instructions DIET: Follow Instructions for: Heart Healthy Diet Activities you can perform: Regular-No Restrictions Follow up Referrals: PCP Follow-up - 2-3 Days New Medications: Amlodipine (Norvasc) 5 Mg Tab 5 MG PO DAILY for Blood Pressure Management, #30 TAB Continued Medications: Pantoprazole (Protonix) 40 Mg Tab 40 MG PO DAILY for Reflux, #30 TAB 0 Refills Discontinued Medications: Sucralfate (Carafate) 1 Gram Tab 1 GM PO QID for Ulcer Prevention, #120 TAB 0 Refills On empty stomach Leeanne Farley MD Oct 14, 2017 14:36
--- NOTE | 2017-10-14 23:18 | EKG ---
Date Performed: 10/13/2017 Time Performed: 04:35:42 PTAGE: 77 years EKG: Sinus rhythm BORDERLINE LEFT AXIS DEVIATION BORDERLINE ECG PREVIOUS TRACING : 08/10/2013 09.23 DOCTOR: Dorian Bryson Interpretating Date/Time 10/14/2017 23:17:54
[2017-10-15] MEDS ORDERED: LOVA20TA PO (22:59)
== END 2017-10-14 18:32 | disposition home or self-care (01) ==
LOC: NEPE 04:07 → NEDA 06:15 → NEPHCDU 06:48
PROVIDERS: ADMIT Internal Medicine; ATTEND Internal Medicine
DX: I10 Essential (primary) hypertension (principal); R94.31 Abnormal electrocardiogram [ECG] [EKG]; E87.1 Hypo-osmolality and hyponatremia; E78.00 Pure hypercholesterolemia, unspecified; B34.9 Viral infection, unspecified; Z79.899 Other long term (current) drug therapy; Z91.14 Patient's other noncompliance with medication regimen; Z90.710 Acquired absence of both cervix and uterus
CPT/HCPCS: 70450; 71045; 80048; 81001; 82550; 82552; 83735; 84484; 85025; 85610; 85730; 93005; 96361; 96372; 96374; 99285; G0378; J0360; J1650; J7030

== ENCOUNTER 2017-10-15 22:48 | Observation (INO) | payer MEDICARE, OTHER ==
[~2017-10-15] VITALS: Ht 154.9 cm; Wt 62.5 kg
[~2017-10-15 22:48] MED LIST changes: +AMLO5 PO; -CARA1TAB6 PO; -CIPR-9 PO
[2017-10-15 22:50] VITALS: BP 193/83; PULSE 94; RESP 16; TEMP 97.9; O2SAT 99
[2017-10-15] MEDS ORDERED: LOVA20TA PO (22:59)
[2017-10-15 23:09] VITALS: BP 191/79; PULSE 89; RESP 18; O2SAT 100
[2017-10-15 23:38] VITALS: RESP 18; O2SAT 100
--- NOTE | 2017-10-15 23:39 | PD ---
HPI Chief Complaint: Hypertension Time Seen by Provider: 23:34 Travel History International Travel<30 days: No Contact w/Intl Traveler<30days: No Traveled to known affect area: No History of Present Illness HPI 77-year-old female presents to the emergency department with family for evaluation of elevated blood pressure complain of chest pain. Patient has history of hypertension. Family reports that this is the third visit in approximately 7 days for the patient to the emergency department. Patient was initially seen approximately 6 days ago for viral syndrome was noted to have elevated blood pressure and was started on amlodipine and then came back 2 days later for elevated blood pressure was admitted for uncontrolled hypertension and was discharged the next day and then returns today stating that she thinks she is having an allergic reaction or adverse reaction to the new statin medication she was started on. Patient took her new statin medication 11 AM but did not have any adverse reaction at that time but this evening noted to have 4-5/10 intensity of chest discomfort and took her blood pressure identifying the systolic pressure to be 187 and decided to come to the emergency room for evaluation. No prior history of chest pain or cardiac disease. Patient does have hypertension and dyslipidemia. No history of diabetes or tobaccoism. Patient also complains of some dizziness no shortness of breath no nausea no vomiting no sweats no referred neck jaw back shoulder or arm pain. Family is at bedside. Patient is does speak broken Icelandic but Is Fluent in Icelandic and Provides History No Further Translation Resources Desired by the Family. PFSH Past Medical History Narrative Medical Hypertension dyslipidemia; hysterectomy; no tobacco use; nursing notes reviewed Blood Disorders: No Cancer: No Cardiovascular Problems: Yes (HTN) High Cholesterol: Yes Endocrine: No Hypertension: Yes Immune Disorder: No Musculoskeletal: No Neurologic: No Psychiatric: No Reproductive: No Respiratory: No Menopausal: Yes : 2 Para: 2 Past Surgical History AICD: No Arteriovenous Shunt: No Hysterectomy: Yes Insulin Pump: No Joint Replacement: No Pacemaker: No Other Surgery: No Social History Alcohol Use: No Tobacco Use: No Substance Use: No Allergies-Medications (Allergen,Severity, Reaction): Coded Allergies: No Known Allergies (Verified Allergy, Unknown, 10/15/17) Reported Meds & Prescriptions Reported Meds & Active Scripts Active Reported Lovastatin 20 Mg Tab 20 Mg PO DAILY Narrative Medication norvasc Review of Systems Except as stated in HPI: all other systems reviewed are Neg Physical Exam Narrative GENERAL: Well-developed well-nourished elderly female in no acute distress no respiratory distress SKIN: Warm and dry. HEAD: Normocephalic. EYES: No scleral icterus. No injection or drainage. NECK: Supple, trachea midline. No JVD or lymphadenopathy. CARDIOVASCULAR: Regular rate and rhythm without murmurs, gallops, or rubs. RESPIRATORY: Breath sounds equal bilaterally. No accessory muscle use. GASTROINTESTINAL: Abdomen soft, non-tender, nondistended. MUSCULOSKELETAL: No cyanosis, or edema. BACK: Nontender without obvious deformity. No CVA tenderness. Data Data Last Documented VS Vital Signs Date Time Temp Pulse Resp B/P (MAP) Pulse Ox O2 Delivery O2 Flow Rate FiO2 10/16/17 00:51 74 18 163/68 (99) 100 Room Air 10/15/17 22:50 97.9 Orders Orders Electrocardiogram (10/15/17 23:35) Basic Metabolic Panel (Bmp) (10/15/17 23:35) Ckmb (Isoenzyme) Profile (10/15/17 23:35) Complete Blood Count With Diff (10/15/17 23:35) Magnesium (Mg) (10/15/17 23:35) Prothrombin Time / Inr (Pt) (10/15/17 23:35) Act Partial Throm Time (Ptt) (10/15/17 23:35) Troponin I (10/15/17 23:35) Chest, Single Ap (10/15/17 23:35) Ecg Monitoring (10/15/17 23:35) Bilateral Bp Monitoring (10/15/17 23:35) Iv Access Insert/Monitor (10/15/17 23:35) Oximetry (10/15/17 23:35) Oxygen Administration (10/15/17 23:35) Aspirin Chew (Aspirin Chew) (10/15/17 23:45) Sodium Chloride 0.9% Flush (Ns Flush) (10/15/17 23:45) Nitroglycerin Sl (Nitrostat Sl) (10/15/17 23:45) Sodium Chlor 0.9% 1000 Ml Inj (Ns 1000 M (10/15/17 23:45) CKMB (10/15/17 23:38) CKMB% (10/15/17 23:38) Nitroglycerin 2% Oint (Nitroglycerin 2% (10/16/17 01:00) Admit Order (Ed Use Only) (10/16/17 ) [facility] Continuous Churn / Telemetry PRACHI.Q8H (10/16/17 01:18) Diet Heart Healthy (10/16/17 Breakfast) Activity Bed Rest (10/16/17 01:18) Notify Dr: Other (10/16/17 01:18) Labs Laboratory Tests Test 10/15/17 23:38 White Blood Count 8.0 TH/MM3 Red Blood Count 4.19 MIL/MM3 Hemoglobin 12.7 GM/DL Hematocrit 37.4 % Mean Corpuscular Volume 89.2 FL Mean Corpuscular Hemoglobin 30.2 PG Mean Corpuscular Hemoglobin Concent 33.8 % Red Cell Distribution Width 13.3 % Platelet Count 271 TH/MM3 Mean Platelet Volume 7.3 FL Neutrophils (%) (Auto) 59.9 % Lymphocytes (%) (Auto) 28.7 % Monocytes (%) (Auto) 9.4 % Eosinophils (%) (Auto) 1.7 % Basophils (%) (Auto) 0.3 % Neutrophils # (Auto) 4.8 TH/MM3 Lymphocytes # (Auto) 2.3 TH/MM3 Monocytes # (Auto) 0.7 TH/MM3 Eosinophils # (Auto) 0.1 TH/MM3 Basophils # (Auto) 0.0 TH/MM3 CBC Comment DIFF FINAL Differential Comment Prothrombin Time 10.4 SEC Prothromb Time International Ratio 1.0 RATIO Activated Partial Thromboplast Time 26.0 SEC Blood Urea Nitrogen 13 MG/DL Creatinine 0.62 MG/DL Random Glucose 107 MG/DL Calcium Level 8.9 MG/DL Magnesium Level 2.0 MG/DL Sodium Level 139 MEQ/L Potassium Level 3.4 MEQ/L Chloride Level 103 MEQ/L Carbon Dioxide Level 31.3 MEQ/L Anion Gap 5 MEQ/L Estimat Glomerular Filtration Rate 94 ML/MIN Total Creatine Kinase 289 U/L Creatine Kinase MB 6.7 NG/ML Creatine Kinase MB % 2.3 % Troponin I 0.27 NG/ML MDM Medical Decision Making Medical Screen Exam Complete: Yes Emergency Medical Condition: Yes Medical Record Reviewed: Yes Interpretation(s) EKG: Normal sinus rhythm rate 87 left axis deviation Q waves septally in V2 age- indeterminate vs lead reversal v1-v2; no acute ST elevation or injury pattern noted Differential Diagnosis Chest pain, ACS, DE, uncontrolled hypertension, adverse medication reaction Narrative Course Patient administered aspirin 162 mg times one dose and for complaint of chest pain 4-5/10 in intensity administered one sublingual nitroglycerin 0.4 MG After sublingual nitroglycerin pain is 0/10 in intensity; patient continues to deny shortness of breath sweats nausea vomiting referred neck jaw shoulder arm or mid scapular/back pain. Labs pending Troponin I elevated 0.27; patient will be admitted for serial cardiac enzymes; presently is asymptomatic; CK total is elevated with elevated CK-MB but MB percent is not elevated 2.1%; patient was recently hospitalized 10/13/17 at which time CK-MB and CK total were also elevated essentially unchanged from today's at which time however troponin I was less than 0.02. Patient's case discussed with Dr Olivier for admission Physician Communication Physician Communication Call placed to [facility] service for admission Diagnosis Primary Impression: Chest pain Qualified Codes: R07.2 - Precordial pain Additional Impressions: Elevated troponin HTN (hypertension) Admitting Information Admitting Physician Requests: Admit Merna Diaz MD Oct 15, 2017 23:39
[2017-10-15 23:45] VITALS: BP 150/68; PULSE 78; RESP 18; O2SAT 100
[2017-10-15] MEDS ORDERED: ASPIRIN 81 MG CHEW TAB PO ONE (23:45)
[2017-10-15] MEDS ORDERED: SODIUM CHLORIDE 0.9% FLUSH 10 ML FLUSH IVF PRN (23:45)
[2017-10-15] MEDS ORDERED: NITROGLYCERIN 0.4 MG SL 25 TABS/BTL SL ONE (23:45)
[2017-10-15] MEDS: SODIUM CHLOR 0.9% 1000 ML INJ 1,000 ML IV SCH (23:46)
--- NOTE | 2017-10-15 23:59 | RADRPT ---
EXAM DATE/TIME: 10/15/2017 23:43 [place] COMPARISON: CHEST SINGLE AP, October 13, 2017, 4:55. INDICATIONS : Chest pain. MEDICAL HISTORY : Hypercholesterolemia. SURGICAL HISTORY : Hysterectomy. ENCOUNTER: Initial ACUITY: 1 day PAIN SCORE: 4/10 LOCATION: Bilateral chest FINDINGS: Single AP view of the chest. The lungs are clear. Cardiomediastinal silhouette within normal limits. No evidence of pleural effusion or pneumothorax. CONCLUSION: No acute cardiopulmonary disease identified. Joao Shipley MD on October 15, 2017 at 23:57 Board Certified Radiologist. This report was verified electronically.
[2017-10-16] VITALS (16 sets, daily range): BP systolic 72–163; BP diastolic 41–75; PULSE 55–75; RESP 14–20; TEMP 98.2–98.7; O2SAT 93–100
[2017-10-16 00:02] LABS: AUTOMATED NEUTROPHIL # 4.8 TH/MM3 (1.8-7.7); BASOPHIL % 0.3 % (0.0-2.0); EOSINOPHIL # 0.1 TH/MM3 (0-0.4); EOSINOPHIL % 1.7 % (0.0-4.0); HEMATOCRIT 37.4 % (35.0-46.0); HEMOGLOBIN 12.7 GM/DL (11.6-15.3); LYMPH % 28.7 % (9.0-44.0); LYMPHOCYTE # 2.3 TH/MM3 (1.0-4.8); MEAN CELL VOLUME 89.2 FL (80.0-100.0); MEAN CORPUSCULAR HEMOGLOBIN 30.2 PG (27.0-34.0); MEAN CORPUSCULAR HGB CONC 33.8 % (32.0-36.0); MEAN PLATELET VOLUME 7.3 FL (7.0-11.0); MONO % 9.4 % (0.0-8.0); MONOCYTE # 0.7 TH/MM3 (0-0.9); NEUT % 59.9 % (16.0-70.0); PLATELET COUNT 271 TH/MM3 (150-450); RED BLOOD COUNT 4.19 MIL/MM3 (4.00-5.30); RED CELL DISTRIBUTION WIDTH 13.3 % (11.6-17.2)
[2017-10-16 00:14] LABS: BICARBONATE 31.3 MEQ/L (21.0-32.0); CALCIUM 8.9 MG/DL (8.5-10.1); CREATININE 0.62 MG/DL (0.50-1.00); PROTHROMBIN TIME - PATIENT 10.4 SEC (9.8-11.6)
[2017-10-16 00:17] LABS: TROPONIN I 0.27 NG/ML (0.02-0.05)
[2017-10-16] MEDS ORDERED: NITROGLYCERIN 2% OINT 1 GM PACKET TOPICAL ONE (01:00)
[2017-10-16] MEDS ORDERED: BISACODYL 10 MG SUPP RECTAL PRN (01:30)
[2017-10-16] MEDS ORDERED: SODIUM CHLORIDE 0.9% FLUSH 10 ML FLUSH IV FLUSH PRN (01:30)
[2017-10-16] MEDS ORDERED: ONDANSETRON HCL 4 MG/2 ML VIAL IVP PRN (01:30)
[2017-10-16] MEDS ORDERED: ACETAMINOPHEN/HYDROcodone 325 MG/5 MG TAB PO PRN (01:30)
[2017-10-16] MEDS ORDERED: ACETAMINOPHEN 325 MG TAB PO PRN (01:30)
[2017-10-16] MEDS ORDERED: MAGNESIUM HYDROXIDE SUSP 30 ML CUP PO PRN (01:30)
[2017-10-16] MEDS ORDERED: LACTULOSE SYRUP 20 GM/30 ML CUP PO PRN (01:30)
[2017-10-16] MEDS ORDERED: MORPHINE SULFATE 2 MG/ML INJ IV PUSH PRN (01:30)
[2017-10-16] MEDS ORDERED: SENNOSIDES 8.6 MG TAB PO PRN (01:30)
[2017-10-16] MEDS ORDERED: NITROGLYCERIN 2% OINT 1 GM PACKET TOPICAL PRN (01:30)
--- NOTE | 2017-10-16 02:45 | HHI.HP ---
HPI Service [facility] Primary Care Physician Mark Roberts MD Admission Diagnosis chest pain; troponin I elevation Diagnoses: (1) HTN (hypertension) Diagnosis: Principal (2) Elevated troponin Diagnosis: Principal (3) Chest pain Diagnosis: Principal (4) Hypokalemia Diagnosis: Principal Travel History International Travel<30 Days: No Contact w/Intl Traveler <30 Da: No Traveled to Known Affected Are: No History of Present Illness This is a 77-year-old female with a PMH of HTN and Noncompliance was brought to the ER by family secondary to c/o elevated BP and chest pain. States symptoms have been ongoing for 2wks now after being diagnosed w/ virus. Seen in ER on for Viral Syndrome and UTI, given Rx for Cipro. Returned to ER on w/ elevated BP 212/85, HR 95 and c/o palpitations, admitted from 10/13-10/14/17 and d/c'd w/ Norvasc 5mg. Today noted to have elevated BP and now w/ c/o chest pain. Chest pain is substernal, sharp, sometimes burning, 4-5/10, w/ radiation to left breast. No SOB, fever, chills or cough. On arrival, BP 193/83, HR 94, O2 sat 99% on RA, Afebrile. CBC unremarkable. Chemistry essentially unremarkable. CPK 289. Troponin 0.27. CXR with no acute findings. S/p NTG w / improvement in chest pain, BP currently 160's. Review of Systems Except as stated in HPI: all other systems reviewed are Neg ROS: 14 point review of systems otherwise negative. Past Family Social History Past Medical History PMH: HTN and Noncompliance Past Surgical History PAST SURGICAL HISTORY: Hysterectomy Allergies: Coded Allergies: No Known Allergies (Verified Allergy, Unknown, 10/15/17) Family History PAST FAMILY HISTORY: Reviewed. No h/o DM or CAD Social History PAST SOCIAL HISTORY: Negative for alcohol, tobacco or drugs. Physical Exam Vital Signs Vital Signs Date Time Temp Pulse Resp B/P (MAP) Pulse Ox O2 Delivery O2 Flow Rate FiO2 1/7/18 02:23 72 18 150/66 (94) 99 Room Air 10/16/17 01:56 75 16 163/72 (102) 100 Room Air 10/16/17 00:51 74 18 163/68 (99) 100 Room Air 10/15/17 23:45 78 18 150/68 (95) 100 Room Air 10/15/17 23:38 18 100 Room Air 10/15/17 23:38 100 Room Air 10/15/17 23:09 89 18 191/79 (116) 100 Room Air 10/15/17 22:50 97.9 94 16 193/83 (119) 99 Room Air Physical Exam PE: GENERAL: Very pleasant middle-aged female in no acute distress. Family at bedside. HEENT: PERRLA, EOMI. No scleral icterus or conjunctival pallor. No lid lag or facial droop. CARDIOVASCULAR: Regular rate and rhythm. No obvious murmurs to auscultation. Reproducible tenderness to palpation underneath left breast. RESPIRATORY: No obvious rhonchi or wheezing. Clear to auscultation. Breath sounds equal bilaterally. GASTROINTESTINAL: Abdomen soft, non-tender, nondistended. BS normal. MUSCULOSKELETAL: Extremities without clubbing, cyanosis, or edema. No obvious deformities. NEUROLOGICAL: Awake, alert and oriented x4. No focal neurologic deficits. Moving both upper and lower extremities spontaneously. Laboratory Laboratory Tests Test 10/15/17 23:38 White Blood Count 8.0 Red Blood Count 4.19 Hemoglobin 12.7 Hematocrit 37.4 Mean Corpuscular Volume 89.2 Mean Corpuscular Hemoglobin 30.2 Mean Corpuscular Hemoglobin Concent 33.8 Red Cell Distribution Width 13.3 Platelet Count 271 Mean Platelet Volume 7.3 Neutrophils (%) (Auto) 59.9 Lymphocytes (%) (Auto) 28.7 Monocytes (%) (Auto) 9.4 Eosinophils (%) (Auto) 1.7 Basophils (%) (Auto) 0.3 Neutrophils # (Auto) 4.8 Lymphocytes # (Auto) 2.3 Monocytes # (Auto) 0.7 Eosinophils # (Auto) 0.1 Basophils # (Auto) 0.0 CBC Comment DIFF FINAL Differential Comment Prothrombin Time 10.4 Prothromb Time International Ratio 1.0 Activated Partial Thromboplast Time 26.0 Blood Urea Nitrogen 13 Creatinine 0.62 Random Glucose 107 Calcium Level 8.9 Magnesium Level 2.0 Sodium Level 139 Potassium Level 3.4 Chloride Level 103 Carbon Dioxide Level 31.3 Anion Gap 5 Estimat Glomerular Filtration Rate 94 Total Creatine Kinase 289 Creatine Kinase MB 6.7 Creatine Kinase MB % 2.3 Troponin I 0.27 Result Diagram: 10/15/17233710/15/172337 Caprini VTE Risk Assessment Caprini VTE Risk Assessment: No/Low Risk (score <= 1) Caprini Risk Assessment Model Point Value = 1 Point Value = 2 Point Value = 3 Point Value = 5 Age 41-60 Minor surgery BMI > 25 kg/m2 Swollen legs Varicose veins or History of unexplained or recurrent spontaneous Oral contraceptives or hormone replacement Sepsis (< 1 month) Serious lung disease, including pneumonia (< 1 month) Abnormal pulmonary function Acute myocardial infarction Congestive heart failure (< 1 month) History of inflammatory bowel disease Medical patient at bed rest Age 61-74 Arthroscopic surgery Major open surgery (> 45 min) Laparoscopic surgery (> 45 min) Malignancy Confined to bed (> 72 hours) Immobilizing plaster cast Central venous access Age >= 75 History of VTE Family history of VTE Factor V Leiden Prothrombin [id number] Lupus anticoagulant Anticardiolipin antibodies Elevated serum homocysteine Heparin-induced thrombocytopenia Other congenital or acquired thrombophilia Stroke (< 1 month) Elective arthroplasty Hip, pelvis, or leg fracture Acute spinal cord injury (< 1 month) Prophylaxis Regimen Total Risk Factor Score Risk Level Prophylaxis Regimen 0-1 Low Early ambulation 2 Moderate Order ONE of the following: *Sequential Compression Device (SCD) *Heparin 5000 units SQ BID 3-4 Higher Order ONE of the following medications: *Heparin 5000 units SQ TID *Enoxaparin/Lovenox 40 mg SQ daily (WT < 150 kg, CrCl > 30 mL/min) *Enoxaparin/Lovenox 30 mg SQ daily (WT < 150 kg, CrCl > 10-29 mL/min) *Enoxaparin/Lovenox 30 mg SQ BID (WT < 150 kg, CrCl > 30 mL/min) AND/OR *Sequential Compression Device (SCD) 5 or more Highest Order ONE of the following medications: *Heparin 5000 units SQ TID (Preferred with Epidurals) *Enoxaparin/Lovenox 40 mg SQ daily (WT < 150 kg, CrCl > 30 mL/min) *Enoxaparin/Lovenox 30 mg SQ daily (WT < 150 kg, CrCl > 10-29 mL/min) *Enoxaparin/Lovenox 30 mg SQ BID (WT < 150 kg, CrCl > 30 mL/min) AND *Sequential Compression Device (SCD) Assessment and Plan Problem List: (1) HTN (hypertension) ICD Code: I10 - Essential (primary) hypertension Status: Acute (2) Chest pain ICD Code: R07.9 - Chest pain, unspecified Status: Acute (3) Elevated troponin ICD Code: R74.8 - Abnormal levels of other serum enzymes (4) Hypokalemia ICD Code: E87.6 - Hypokalemia Assessment and Plan A/P: 1. HTN: Uncontrolled. Pt w/ known h/o Non-compliance w/ meds, recent admit 10/13-10/14/17 for Uncontrolled HTN, d/c'd on Norvasc 5mg, now w/ recurrence. BP 190' s on arrival, s/p NTG w/ improvement, BP now 160's. Start low-dose antihypertensive medications as pt seemingly sensitive to meds. Monitor BP. Telemetry. 2. Chest Pain: Acute onset of substernal chest pain w/ palpitations, reproducible on exam. R/o ACS. Check serial enzymes, NTG/Morphine. Currently chest pain free. 3. Elevated Trop: Trop 0.27, EKG w/ no acute ischemia, possible strain from uncontrolled HTN, however R/o underlying ischemia. Check serial enzymes for trend. Consult Cardiology for further recommendations, possible intervention. 4. Hypokalemia: K+ 3.4, repeat labs in am, replace as needed. 5. DVT Prophylaxis: Heparin sq 6. Social work for d/c planning as needed. 7. Records/labs/imaging reviewed by me, case discussed w/ ER physician at length. Physician Certification 2 Midnight Certification Type: Admission for Inpatient Services Order for Inpatient Services The services are ordered in accordance with Medicare regulations or non- Medicare payer requirements, as applicable. In the case of services not specified as inpatient-only, they are appropriately provided as inpatient services in accordance with the 2-midnight benchmark. Estimated LOS (days): 2 days is the estimated time the patient will need to remain in the hospital, assuming treatment plan goals are met and no additional complications. Post-Hospital Plan: Not yet determined Problem Qualifiers (1) Chest pain: Qualified Codes: R07.2 - Precordial pain Ghada Olivier MD Oct 16, 2017 02:45
[2017-10-16] MEDS: PRAVASTATIN SOD 20 MG TAB PO SCH ×2 (09:00→09:24)
[2017-10-16] MEDS: DOCUSATE SODIUM 50 MG/SENNA 8.6 MG TAB PO SCH ×2 (09:00→20:55)
[2017-10-16] MEDS ORDERED: HEPARIN SODIUM - SQ 10,000 UNITS/ML VIAL SQ SCH (09:00)
[2017-10-16 09:01] LABS: CHOLESTEROL/ HDL RATIO 3.96 RATIO; HDL CHOLESTEROL 50.2 MG/DL (40.0-60.0); TROPONIN I 0.27 NG/ML (0.02-0.05)
[2017-10-16] MEDS: METOPROLOL TARTRATE 25 MG TAB PO SCH ×2 (09:24→20:55)
[2017-10-16] MEDS: ASPIRIN EC 81 MG TABEC PO SCH (09:24)
[2017-10-16] MEDS: SODIUM CHLORIDE 0.9% FLUSH 10 ML FLUSH IV FLUSH SCH ×2 (09:24→21:00)
--- NOTE | 2017-10-16 10:09 | PD.CONS ---
HPI Consult Requested By Primary Care Physician Mark Roberts MD History of Present Illness 77-year-old female with a PMH of HTN and Noncompliance was brought to the ER by family secondary to c/o elevated BP and chest pain. States symptoms have been ongoing for 2wks now after being diagnosed w/ virus. Seen in ER on 10/09/16 for Viral Syndrome and UTI, given Rx for Cipro. Returned to ER on 10/13/17 w/ elevated BP 212/85, HR 95 and c/o palpitations, admitted from 10/13-10/14/17 and d/c 'd w/ Norvasc 5mg. Today noted to have elevated BP and now atypical chest pain. Chest pain is central, sharp, sometimes burning, /10, w/ radiation to left breast. No SOB, fever, chills or cough. On arrival, BP 193/83, HR 94, O2 sat 99% on RA, Afebrile. CBC unremarkable. Troponin 0.27 x2. CXR with no acute findings. S/p NTG w/ improvement in chest pain, BP currently 160's. Review of Systems Consitutional: DENIES: Fatigue, Fever, Chills, Weight gain, Weight loss Eyes: DENIES: Amaurosis Fugax, Change in vision HEENT: DENIES: Lightheadedness, Change in hearing Respiratory: COMPLAINS OF: See HPI, DENIES: Cough, Snoring, Shortness of breath , Wheezing, Sputum production Cardiovascular: COMPLAINS OF: See HPI, DENIES: Chest pain, Palpitations, Syncope, Tachycardia Gastrointestinal: DENIES: Nausea, Vomiting, Change in bowel habits, Reflux, Bloody stools, Melena Genitourinary: DENIES: Urinary incontinence, Difficulty voiding Neurologic: DENIES: Tingling or numbness, Memory problems, Poor Balance, Stroke symptoms Musculoskeletal: DENIES: Joint pain, Muscle pain, Limited range of motion, Back pain Psychiatric: DENIES: Anxiety, Depression, Sleep disturbances Hematologic: DENIES: Bruising tendencies, Bleeding tendencies Endocrine: DENIES: Weight gain, Weight loss, Thyroid disease Past Family Social History Allergies: Coded Allergies: No Known Allergies (Verified Allergy, Unknown, 10/15/17) Past Medical History HTN and Noncompliance Past Surgical History Hysterectomy Reported Medications Reported Meds & Active Scripts Active Reported Lovastatin 20 Mg Tab 20 Mg PO DAILY Active Ordered Medications Current Medications Medications (Trade) Dose Ordered Sig/Delmer Route Start Time Stop Time Status Last Admin Sodium Chloride 1,000 ml @ 100 mls/hr Q10H IV 10/15/17 23:45 10/15/17 23:46 (Ecotrin Ec) 81 mg DAILY PO 10/16/17 09:00 10/16/17 09:24 (NS Flush) 2 ml UNSCH PRN IV FLUSH 10/16/17 01:30 (NS Flush) 2 ml BID IV FLUSH 10/16/17 09:00 10/16/17 09:24 (Zofran Inj) 4 mg Q6H PRN IVP 10/16/17 01:30 (Heparin Inj) 5,000 units Q12H SQ 10/16/17 09:00 (Tylenol) 650 mg Q6H PRN PO 10/16/17 01:30 (Madill 5-325 Mg) 1 tab Q4H PRN PO 10/16/17 01:30 (Morphine Inj) 2 mg Q3H PRN IV PUSH 10/16/17 01:30 (Ambra-Colace) 1 tab BID PO 10/16/17 09:00 (Milk Of Magnesia Liq) 30 ml Q12H PRN PO 10/16/17 01:30 (Senokot) 17.2 mg Q12H PRN PO 10/16/17 01:30 (Dulcolax Supp) 10 mg DAILY PRN RECTAL 10/16/17 01:30 (Lactulose Liq) 30 ml DAILY PRN PO 10/16/17 01:30 (Lopressor) 25 mg Q12HR PO 10/16/17 09:00 10/16/17 09:24 (Nitroglycerin 2% Oint) 0.5 inch Q6HR PRN TOPICAL 10/16/17 01:30 (Pravachol) 20 mg DAILY PO 10/16/17 09:00 Family History No h/o DM or CAD Social History Negative for alcohol, tobacco or drugs. Physical Exam Vital Signs Vital Signs Date Time Temp Pulse Resp B/P (MAP) Pulse Ox O2 Delivery O2 Flow Rate FiO2 10/16/17 04:54 61 10/16/17 04:09 67 10/16/17 03:11 98.2 66 16 134/55 (81) 98 1/7/18 03:02 10/16/17 02:23 72 18 150/66 (94) 99 Room Air 10/16/17 01:56 75 16 163/72 (102) 100 Room Air 10/16/17 00:51 74 18 163/68 (99) 100 Room Air 10/15/17 23:45 78 18 150/68 (95) 100 Room Air 10/15/17 23:38 18 100 Room Air 10/15/17 23:38 100 Room Air 10/15/17 23:09 89 18 191/79 (116) 100 Room Air 10/15/17 22:50 97.9 94 16 193/83 (119) 99 Room Air Physical Exam GENERAL: Well-nourished, well-developed patient. SKIN: Warm and dry. HEAD: Normocephalic. EYES: No scleral icterus. No injection or drainage. NECK: Supple, trachea midline. No JVD or lymphadenopathy. CARDIOVASCULAR: Regular rate and rhythm without murmurs, gallops, or rubs. RESPIRATORY: Breath sounds equal bilaterally. No accessory muscle use. GASTROINTESTINAL: Abdomen soft, non-tender, nondistended. EXTREMITIES: No cyanosis, or edema. NEUROLOGICAL: Awake, alert, and oriented x 3. Non-focal. Laboratory Laboratory Tests Test 10/15/17 23:38 10/16/17 08:05 White Blood Count 8.0 Red Blood Count 4.19 Hemoglobin 12.7 Hematocrit 37.4 Mean Corpuscular Volume 89.2 Mean Corpuscular Hemoglobin 30.2 Mean Corpuscular Hemoglobin Concent 33.8 Red Cell Distribution Width 13.3 Platelet Count 271 Mean Platelet Volume 7.3 Neutrophils (%) (Auto) 59.9 Lymphocytes (%) (Auto) 28.7 Monocytes (%) (Auto) 9.4 Eosinophils (%) (Auto) 1.7 Basophils (%) (Auto) 0.3 Neutrophils # (Auto) 4.8 Lymphocytes # (Auto) 2.3 Monocytes # (Auto) 0.7 Eosinophils # (Auto) 0.1 Basophils # (Auto) 0.0 CBC Comment DIFF FINAL Differential Comment Prothrombin Time 10.4 Prothromb Time International Ratio 1.0 Activated Partial Thromboplast Time 26.0 Blood Urea Nitrogen 13 Creatinine 0.62 Random Glucose 107 Calcium Level 8.9 Magnesium Level 2.0 Sodium Level 139 Potassium Level 3.4 Chloride Level 103 Carbon Dioxide Level 31.3 Anion Gap 5 Estimat Glomerular Filtration Rate 94 Total Creatine Kinase 289 Creatine Kinase MB 6.7 Creatine Kinase MB % 2.3 Troponin I 0.27 0.27 Triglycerides Level 58 Cholesterol Level 199 LDL Cholesterol 137 HDL Cholesterol 50.2 Cholesterol/HDL Ratio 3.96 Result Diagram: 10/15/17233710/15/172337 Imaging Last Impressions Chest X-Ray 10/15/175 Signed Impressions: Service Date/Time: Sunday, October 15, 2017 23:43 - CONCLUSION: No acute cardiopulmonary disease identified. Joao Shipley MD Assessment and Plan Problem List: (1) Elevated troponin ICD Codes: R74.8 - Abnormal levels of other serum enzymes Plan: 77 y/o with atypical chest pain and elevated troponin in the setting of uncontrolled HTN. Cardiac risk factors include HTN, Obesity and Age. Having some atypical and vague chest discomfort. Given age, risk factors and elevated troponin I agree a LHC will be the best option to assess CAD. Risk of benefits of LHC +/- PCI have been discuss with patient and family. Patient understands risks and is willing to proceed. Recs: BP control Statins Keep NPO for LHC today (2) HTN (hypertension) ICD Codes: I10 - Essential (primary) hypertension Status: Acute (3) Chest pain ICD Codes: R07.9 - Chest pain, unspecified Status: Acute Problem Qualifiers (1) Chest pain: Qualified Codes: R07.2 - Precordial pain Brett Dennis MD Oct 16, 2017 10:09
--- NOTE | 2017-10-16 14:22 | EKG ---
Date Performed: 10/15/2017 Time Performed: 23:10:08 PTAGE: 77 years EKG: LEFT AXIS DEVIATION POOR INITIAL [employer]CES Compared to previous tracing, R-force dimi nished in V2, which is probably a change in lead placement. ABNORMAL ECG PREVIOUS TRACING : 10/13/2017 04.35 DOCTOR: Guillermo Perez Interpretating Date/Time 10/16/2017 14:21:32
--- NOTE | 2017-10-16 14:24 | EKG ---
Date Performed: 10/16/2017 Time Performed: 05:57:20 PTAGE: 77 years EKG: Sinus rhythm Left axis deviation Extensive T wave changes are nonspecific Borderline ECG Compared to PREVIOUS TRACING , the T-wave changes anterolaterally are more prominent. PREVIOUS TRACIN 10/15/2017 23.10 DOCTOR: Guillermo Perez Interpretating Date/Time 10/16/2017 14:23:03
[2017-10-16] MEDS ORDERED: VERAPAMIL HCL 5 MG/2 ML VIAL ONE (16:01)
[2017-10-16] MEDS ORDERED: HEPARIN-NS/PF INJ 1,000 ML ONE (16:01)
[2017-10-16] MEDS ORDERED: MIDAZOLAM HCL 2 MG/2 ML VIAL ONE (16:01)
[2017-10-16] MEDS ORDERED: NITROGLYCERIN INJ 5 ML ONE (16:02)
[2017-10-16] MEDS ORDERED: HEPARIN SODIUM - IV 10,000 UNITS/10 ML VIAL ONE (16:02)
--- NOTE | 2017-10-16 16:48 | CATHPROC ---
[place] [employer] [facility] HIS Report Study Information Study Number Admission Scheduled Start Study Start [id number] Oct 16 2017 1:20AM 10/16/2017 Oct 16 2017 3:48PM [place] Service Cardiac Catheterization Admit Source Facility Department Emergency department [facility] - Stock Sheets Cleaner Inspector Physician and Clinical Staff Initial Brett Schroeder Truck Dock Material Mover Yuly Singer BSN Recorder Pierre Robison,RT(R) ScrLucia Fay,RT(R) (BS) Procedures Performed Procedure Location (Site) Vessel Name Coronary Angiograms LCA Left Coronary Coronary Angiograms RCA Right Coronary LV Gram-hand inj. LV LV Ventricle Equipment Time Production Administrative Assistant Description Size Mfg Part Number Used/Scraped TRANSDUCER, TRUWAVE [id number] 15:51 ALEXANDER ROSARIO * Used W/KOJI DrinksCK *[id number] *[id number] 15:51 Media Radar PACK, CCL CUSTOM * Used *[id number] 15:51 Media Radar SUPPORT, ARTERIAL ADULT 18549 *[id number] Used [id number] 16:19 MEDTRONIC JL 4.0 DXTERITY CATHETER FR 5 Used *[id number] BAND, RADIAL COMPRESSION TR [id number] 16:37 [employer] MEDICAL 24CM Used SHORT 24 *[id number] 15:51 [employer] MEDICAL WIRE, 3MMJ .035 180CM 180CM Used *[id number] 15:51 NAMIC MANIFOLD, 4 PORT * Used *[id number] 15:51 NYCOMED OMNIPAQUE, 350 MG, 150ML 150ML [id number] Used [id number] 15:51 ARELLANO MEDICAL BLANKET,WARM AIR CCL * Used *[id number] SHEATH, FR6 TRANSRADIAL [id number] 15:51 [employer] ([email or web address]) MEDICAL FR 6 Used SLENDER 10CM *[id number] Equipment Model, Serial, Lot Number and Expiration Data Description Model Number Serial Number Lot Number Expiration Date JL 4.0 DXTERITY CATHETER [id number] 05-11-2020 History: Allergies Allergy Reaction No Known Allergies History: Risk Factors Hypertension Yes History: Stress Tests Stress or Imaging Studies Performed No Labs Hgb (g/dl) Hct (%) WBC (l/cumm) Platelets (thousands) 11.60-17.00 35.00-51.00 4.00-11.00 150.00-450.00 12.7 37.4 8 271 Glucose (mg/dl) BUN (mg/dl) Creatinine (mg/dl) BUN:Creatinine (1:x) 74.00-106.00 7.00-18.00 0.50-1.30 10.00-20.00 107 13 0.6 21.7 Na (meq/l) K (meq/l) Cl (meq/l) CO2 (mmol/L) 136.00-145.00 3.50-5.10 98.00-107.00 21.00-32.00 139 3.4 103 31.3 PT (sec) INR (PTT:PT) 9.80-11.60 0.90-1.10 10.4 1 Troponin I (ng/ml) CPK-MB (ng/ML) 0.02-0.05 0.50-3.60 0.21 Not Drawn Medication Medication Total Dose (Bolus/Oral) Medication Total Dosage/Unit 1% XYLOCAINE 5 mL FENTANYL 50 mcg RADIAL COCKTAIL 5 mL (Bolus) VERSED 2 mg Medications (Bolus/Oral) Medication Time Given Dosage/Unit Administered By Reason VERSED 10/16/2017 4:26:55 PM 2 mg Yuly Singer Patient arrived on 2 mg VERSED given by Yuly Singer BSN via Peripheral IV. Ordered by Brett Mehta. 1% XYLOCAINE 10/16/2017 4:27:14 PM 5 mL Brett Dennis Patient arrived on 5 mL 1% XYLOCAINE given by Brett Dennis in Right Groin via Subcutaneous. Orde red by Brett Dennis. FENTANYL 10/16/2017 4:27:41 PM 50 mcg Yuly Singer Patient arrived on 50 mcg FENTANYL given by Yuly Singer BSN via Peripheral IV. Ordered by Brett Brower. RADIAL COCKTAIL 10/16/2017 4:30:10 PM 5 mL (Bolus) Brett Dennis Patient arrived on 5 mL (Bolus) RADIAL COCKTAIL given by Brett Dennis via Radial. Using [Solutio n Name]. Ordered by Bertt Dennis. 2500units heparin, 2.5mg verapamil, 200mcg nitro Medication (Drip) Medication Time Given Dosage/Unit Concentration/Unit Diluent (ml) Solution IV Solutions 10/16/2017 4:09:45 PM 0 mL (IV) 500 NaCl .9 Patient arrived on IV Solutions in Left Antecubital via Peripheral IV. Pump/Drip Flow = 20 ml/hr usin g NaCl .9. Initial Case Assessment Cardiovascular HR Rhythm NIBP Chest Pain 99 sr 159/67 0 Edema Present Skin color Skin None Normal Warm Dry Circulatory - Right Pulses Dorsalis Pedis Femoral Radial 3 3 3 Scale (0,1,2,3,4,d) Scale (0,1,2,3,4,d) Neurological State Oriented to time-place- Alert Moves all extremities person Respiration - General Respiration Rate SpO2 (%) O2 (lpm) (B/min) 18 98 0 Final Case Assessment Cardiovascular HR Rhythm NIBP Chest Pain 73 sr 85/54 0 Edema Present Skin color Skin None Normal Warm Dry Circulatory - Right Pulses Dorsalis Pedis Femoral Radial 3 3 3 Scale (0,1,2,3,4,d) Scale (0,1,2,3,4,d) Neurological State Oriented to time-place- Alert Moves all extremities person Respiration - General Respiration Rate SpO2 (%) O2 (lpm) (B/min) 18 92 0 Chronological Log Time Study Chronological Log 15:52:03 Patient arrived via Bed. 15:52:05 Patient Name, D.O.B, / Armband Verified By R.N. 15:52:06 Consent signed by the physician and the patient and verified by the Stock Sheets Cleaner Inspector staff. 15:52:07 Pre-op and post- op instructions given; patient acknowledges understanding of instructions. 15:52:26 Verbal Stimulation=2 Physical Stimulation=2 Airway=2 Respiration=2 TOTAL=8. (0=absent, 1=li mited, 2=present) 15:52:39 Presedation assessment performed by Stock Sheets Cleaner Inspector RN. 15:52:45 Allens test performed on the right radial and ulnar artery. Positive Allens test performed by Yuly Howell Rn. Vitals capture started with the following parameters, Patient=Adult, Interval=5 min, Initial Pr bdaszf=021 mmHg, 16:02:43 Deflation Rate=5 mmHg, Cuff placed on Left Arm 16:04:01 HR=78 bpm, ISAC=536/71 mmhg, SpO2=99.0 %, Resp=19 B/min, Beckett=2 16:08:28 HR=78 bpm, PHFI=135/67 mmhg, UfR9=082.0 %, Resp=18 B/min, Beckett=2 16:08:31 Skin Breakdown-none present per patient. 16:08:58 Patient has been NPO for Less than 6Hrs. 16:09:02 A # 20 IV was noted in the Antecubital (left). Grade = 0 16:09:45 Patient arrived on IV Solutions in Left Antecubital via Peripheral IV. Pump/Drip Flow = 20 ml/hr using NaCl .9. 16:10:03 History and physical on the chart or being dictated. 16:10:05 Reference ECG taken Assessment: Initial Case, HR=99 BPM, Rhythm=sr, RYNW=492/67 mmhg, Chest Pain=0, Edema=None, Col or=Normal, Skin = Warm, Dry 16:10:07 Right Pulses: West Ped=3, Femoral=3, Radial=3 Neurological: State=Alert, Ox3, SOUTH Respiration: Resp=18 B/min, SpO2=98 %, O2=0 lpm 16:10:30 Reference ECG taken 16:10:34 Right groin and right radial prepped with 2% chlorhexidine, and draped after a 3 min. waiti ng time. 16:11:29 MD paged 16:13:29 HR=80 bpm, AFES=772/66 mmhg, SpO2=99.0 %, Resp=18 B/min, Beckett=2 16:15:03 Pressure channel 1 zeroed. 16:18:58 HR=78 bpm, DFJQ=601/63 mmhg, BzW8=210.0 %, Resp=17 B/min, Beckett=2 16:23:25 HR=74 bpm, SBMC=012/67 mmhg, SpO2=99.0 %, Resp=18 B/min, Beckett=2 Time Out. Correct patient, correct procedure, correct physician, power injector not loaded with contrast with surgical 16:26:26 team present. Time Out Concurred by MD and individual staff in procedure. Not loaded at this ti me. 16:26:55 Patient arrived on 2 mg VERSED given by Yuly Singer BSN via Peripheral IV. Ordered by Brett Dennis. 16:27:03 Presedation re-assessment performed by Stock Sheets Cleaner Inspector RN. 16:27:05 Case Start 16::06 Verbal Stimulation=2 Physical Stimulation=2 Airway=2 Respiration=2 TOTAL=8. (0=absent, 1=li mited, 2=present) Patient arrived on 5 mL 1% XYLOCAINE given by Brett Dennis in Right Groin via Subcutaneous . Ordered by KayTisha 16:27:14 Brett Cooley. Patient arrived on 50 mcg FENTANYL given by Yuly Singer BSN via Peripheral IV. Ordered by Jeannie, 16:27:41 Brett. 16:28:26 HR=76 bpm, TKLH=213/58 mmhg, SpO2=97.0 %, Resp=15 B/min, Beckett=2 16:29:31 Access site was Radial Artery. A SHEATH, FR6 TRANSRADIAL SLENDER 10CM FR 6 was advanced into the Fem Art (right) using the Per cutaneous 16:29:40 technique. Recorded Pressure: LV, HR=74, Condition=Condition 1 16:29:56 (Left Ventricle) LV 118/7/16 Patient arrived on 5 mL (Bolus) RADIAL COCKTAIL given by Brett Dennis via Radial. Using [S olution Name]. 16:30:10 Ordered by Brett Dennis. 2500units heparin, 2.5mg verapamil, 200mcg nitro Recorded Pressure: LV, Ao, HR=75, Condition=Condition 1 16:30:15 (Left Ventricle) LV 129/11/19, (Aorta) Ao 122/56/84 A JR 4.0 INFINITI CATHETER FR 5 was advanced over a wire. OMNIPAQUE, 350 MG, 150ML 150ML was u sed for 16:30:26 injections. 16:30:50 The LV was manually injected with 10 cc's and visualized. OMNIPAQUE, 350 MG, 150ML 150ML u sed. 16:30:57 The RCA was injected and visualized at various angles. OMNIPAQUE, 350 MG, 150ML 150ML use d. After removing the current catheter a JL 4.0 DXTERITY CATHETER FR 5 was advanced over a WIRE, 3MMJ .035 180CM 16:31:04 180CM. 16:31:21 The LCA was injected and visualized at various angles. OMNIPAQUE, 350 MG, 150ML 150ML use d. Recorded Pressure: Ao, HR=72, Condition=Condition 1 16:31:47 (Aorta) Ao 113/50/72 16:33:27 HR=75 bpm, NIBP=85/54 mmhg, Resp=14 B/min, Beckett=2 16:35:18 Catheter was removed 16:35:38 Case End Assessment: Final Case, HR=73 BPM, Rhythm=sr, NIBP=85/54 mmhg, Chest Pain=0, Edema=None, Color =Normal, Skin = Warm, Dry 16:35:57 Right Pulses: West Ped=3, Femoral=3, Radial=3 Neurological: State=Alert, Ox3, SOUTH Respiration: Resp=18 B/min, SpO2=92 %, O2=0 lpm 16:38:16 HR=67 bpm, NIBP=87/51 mmhg, Resp=17 B/min, Beckett=2 16:38:30 No case complications noted. Radial Compression Device Used. 11 mLs of air placed in BAND, RADIAL COMPRESSION TR SHORT 24 2 4CM. Affected 16:38:34 hand 93 % O2 saturation. 16:40:28 Contrast Scanned 16:43:17 HR=67 bpm, NIBP=92/51 mmhg, SpO2=96.0 %, Resp=11 B/min, Beckett=2 16:44:08 Vitals capture stopped. 16:45:23 Patient moved to [facility] End Study - Contrast Media Used In Study Contrast Total Opened (mL) Total Used (mL) Total Wasted (mL) Omnipaque 30 30 0 End Study - Maximum Contrast Load Max Contrast Load (mL) 586.7 End Study - Radiation Exposure Fluoro Time (minutes) 1.4 End Study - Patient Disposition Complications Transferred To Telemetry Bed
[2017-10-16] MEDS ORDERED: MISC INFORMATION XX ONE (17:00)
--- NOTE | 2017-10-16 17:28 | MA ---
cc: MARGAUX LONG DATE: 10/16/2017 PROCEDURE PERFORMED: 1. Left heart catheterization. 2. Selective right and left coronary angiography. 3. Left ventriculography. INDICATIONS FOR THE PROCEDURE: Elevated troponins. Atypical chest pain / wji-AD-azcdtjdbx myocardial infarction. ACCESS: Right transradial. DESCRIPTION OF THE PROCEDURE IN DETAIL: Consent signed. The patient was taken to the cardiac labor relations consultant in a fasting state. The right wrist was prepped and draped in sterile fashion using 1% lidocaine for local anesthesia and micropuncture kit. A 6-Brazilian sheath was inserted into the right radial artery. Antispasmodic cocktail given. Then selective right and left coronary angiography was performed with a JR-4 and JL- 3.5 diagnostic catheters. Angiography was taken in multiple views. Then the JR -4 diagnostic catheter was introduced into the ventricle over a wire. This was followed by pressure recordings, left ventriculogram and pullback. The patient tolerated the procedure well without complications. Estimated blood loss was less than 10 mL. Total contrast was 30 mL. The patient's access site was closed with a TR band. RESULTS: 1. Left ventriculography: The left ventricular pressure was 129/11 with left ventricular end diastolic pressure of 19. The aortic pressure was 113/50 with a mean of 72. There was no gradient upon pullback from the left ventricle to aorta. The ventriculogram revealed symmetrically hesham ventricle with an estimated ejection fraction of 60%. ANGIOGRAPHIC RESULTS: 1. Right coronary artery: The right coronary artery was a dominant vessel and it is giving off the PDA branch and the posterolateral branch; both are patent with BROOKLYN III flow and nonobstructive coronary artery disease. The body of the right coronary artery per se has minimal luminal irregularities and a proximal 10% lesion and a distal 5% lesion. 2. Left main: The left main is patent with BROOKLYN III flow and it is giving off the left anterior descending and the left circumflex artery. 3. Left anterior descending: The left anterior descending is a transapical vessel and is giving off two diagonal vessels. He has a wnu-ikyk-gmklgtae small dissection in the proximal left anterior descending. The rest of the vessel is smooth and open with BROOKLYN III flow. 4. Left circumflex: The left circumflex artery has minimal luminal irregularities throughout. It is giving off two OM branches which are patent, tortuous and nonobstructing coronary artery disease CONCLUSIONS: 1. Nonobstructive coronary artery disease. 2. Preserved left ventricular systolic function. 3. Elevated left ventricular end diastolic pressure. 4. Uncontrolled high blood pressure. RECOMMENDATIONS: 1. Continue aggressive medical management for primary prevention of coronary artery disease. 2. Blood pressure control. 3. The patient should follow up with cardiology upon discharge. 4. Echo MD BART Dickens/SKIP /4:31 PM /5:06 PM MTDTressa
[2017-10-16] MEDS: PANTOPRAZOLE SOD 40 MG DELAYED RELEASE TAB PO SCH (20:55)
[2017-10-16] MEDS: SODIUM CHLOR 0.9% 1000 ML INJ 1,000 ML IV SCH (22:32)
[2017-10-17 00:04] VITALS: PULSE 72
[2017-10-17 02:00] VITALS: PULSE 64
[2017-10-17 03:00] VITALS: PULSE 73
[2017-10-17 05:01] VITALS: BP 109/58; PULSE 52; RESP 16; TEMP 98.1; O2SAT 98
[2017-10-17] MEDS: SODIUM CHLOR 0.9% 1000 ML INJ 1,000 ML IV SCH (05:45)
[2017-10-17 06:14] LABS: AUTOMATED NEUTROPHIL # 5.7 TH/MM3 (1.8-7.7); BASOPHIL % 0.2 % (0.0-2.0); EOSINOPHIL # 0.2 TH/MM3 (0-0.4); EOSINOPHIL % 1.8 % (0.0-4.0); HEMATOCRIT 35.2 % (35.0-46.0); HEMOGLOBIN 11.8 GM/DL (11.6-15.3); LYMPH % 24.5 % (9.0-44.0); LYMPHOCYTE # 2.1 TH/MM3 (1.0-4.8); MEAN CELL VOLUME 90.2 FL (80.0-100.0); MEAN CORPUSCULAR HEMOGLOBIN 30.1 PG (27.0-34.0); MEAN CORPUSCULAR HGB CONC 33.4 % (32.0-36.0); MEAN PLATELET VOLUME 7.4 FL (7.0-11.0); MONO % 7.5 % (0.0-8.0); MONOCYTE # 0.7 TH/MM3 (0-0.9); PLATELET COUNT 241 TH/MM3 (150-450); RED BLOOD COUNT 3.91 MIL/MM3 (4.00-5.30); RED CELL DISTRIBUTION WIDTH 13.4 % (11.6-17.2); WHITE BLOOD COUNT 8.7 TH/MM3 (4.0-11.0)
[2017-10-17 06:38] LABS: ALBUMIN 3.2 GM/DL (3.4-5.0); AST (GOT) 60 U/L (15-37); BICARBONATE 23.8 MEQ/L (21.0-32.0); BLOOD UREA NITROGEN 11 MG/DL (7-18); CALCIUM 8.5 MG/DL (8.5-10.1); CHLORIDE 104 MEQ/L (98-107); CREATININE 0.65 MG/DL (0.50-1.00); GLOMERULAR FILTRATION RATE 89 ML/MIN (>89); GLUCOSE,RANDOM 93 MG/DL (74-106); SODIUM (NA) 135 MEQ/L (136-145)
[2017-10-17 06:42] LABS: ALKALINE PHOSPHATASE 57 U/L (45-117); ALT (GPT) 59 U/L (10-53); TOTAL BILIRUBIN ADULT 0.5 MG/DL (0.2-1.0); TOTAL PROTEIN 6.7 GM/DL (6.4-8.2)
[2017-10-17 08:00] VITALS: BP 114/62; PULSE 57; RESP 16; TEMP 98; O2SAT 96
[2017-10-17] MEDS: DOCUSATE SODIUM 50 MG/SENNA 8.6 MG TAB PO SCH (09:00)
[2017-10-17] MEDS: ASPIRIN EC 81 MG TABEC PO SCH (09:10)
[2017-10-17] MEDS: PRAVASTATIN SOD 20 MG TAB PO SCH (09:10)
[2017-10-17] MEDS: PANTOPRAZOLE SOD 40 MG DELAYED RELEASE TAB PO SCH (09:10)
[2017-10-17] MEDS: METOPROLOL TARTRATE 25 MG TAB PO SCH (09:10)
--- NOTE | 2017-10-17 12:35 | ECHRPT ---
Indication: chest pain CONCLUSIONS The left ventricular systolic function is normal with an estimated ejection fraction in the range of 60-65%. Normal left ventricular size. Mild concentric left ventricular hypertrophy. No regional wall motion abnormalities are present. Calcification of the non-coronary cusp. Mild aortic valve regurgitation. There is trace tricuspid valve regurgitation. The estimated pulmonary arterial pressure is 31.7 mmHg. BP: 109 / 58 HR: 52 Rhythm: Sinus MEASUREMENTS (Male / Female) Normal Values Technical Quality:Fair 2D ECHO LV Diastolic Diameter PLAX 3.3 cm 4.2 - 5.9 / 3.9 - 5.3 cm LV Systolic Diameter PLAX 2.3 cm IVS Diastolic Thickness 1.4 cm 0.6 - 1.0 / 0.6 - 0.9 cm LVPW Diastolic Thickness 1.4 cm 0.6 - 1.0 / 0.6 - 0.9 cm LV Relative Wall Thickness 0.8 RV Internal Dim ED PLAX 2.4 cm LVOT Diameter 1.6 cm LA Systolic Diameter LX 3.3 cm 3.0 - 4.0 / 2.7 - 3.8 cm M-MODE Aortic Root Diameter MM 2.8 cm LA Systolic Diameter MM 3.8 cm LA Ao Ratio MM 1.4 AV Cusp Separation MM 2.0 cm DOPPLER AV Peak Velocity 138.0 cm/s AV Peak Gradient 7.6 mmHg AI Peak Velocity 276.0 cm/s AI Peak Gradient 30.5 mmHg AI Pressure Half Time 1082.0 ms LVOT Peak Velocity 102.0 cm/s LVOT Peak Gradient 4.2 mmHg AV Area Cont Eq pk 1.5 cm MV Area PHT 3.7 cm Mitral E Point Velocity 93.3 cm/s Mitral A Point Velocity 124.0 cm/s Mitral E to A Ratio 0.8 LV E' Lateral Velocity 5.8 cm/s Mitral E to LV E' Lateral Ratio 16.2 LV E' Septal Velocity 6.7 cm/s Mitral E to LV E' Septal Ratio 13.9 TR Peak Velocity 233.0 cm/s TR Peak Gradient 21.7 mmHg Right Atrial Pressure 10.0 mmHg Pulmonary Artery Systolic Pressu 31.7 mmHg Right Ventricular Systolic Press 31.7 mmHg PV Peak Velocity 76.0 cm/s PV Peak Gradient 2.3 mmHg FINDINGS LEFT VENTRICLE The left ventricular systolic function is normal with an estimated ejection fraction in the range of 60-65%. Normal left ventricular size. Mild concentric left ventricular hypertrophy. No regional wall motion abnormalities are present. RIGHT VENTRICLE Normal right ventricular size and systolic function. LEFT ATRIUM The left atrial size is normal. RIGHT ATRIUM The right atrial size is normal. ATRIAL SEPTUM Normal atrial septal thickness without atrial level shunting by limited color doppler interrogation. AORTA The aortic root and proximal ascending aorta are normal in size on limited imaging. MITRAL VALVE Structurally normal mitral valve. No mitral valve stenosis or regurgitation. AORTIC VALVE Trileaflet aortic valve. Calcification of the non-coronary cusp. Mild aortic valve regurgitation. TRICUSPID VALVE Structurally normal tricuspid valve. There is trace tricuspid valve regurgitation. The estimated pulmonary arterial pressure is 31.7 mmHg. PULMONARY VALVE No pulmonary valve regurgitation or stenosis. VESSELS The inferior vena cava is normal in size. PERICARDIUM No pericardial effusion. Bishnu Cunningham MD, FACC (Electronically Signed) Final Date:17 October 2017 12:34
[2017-10-17 12:50] VITALS: BP 108/64; PULSE 58; RESP 16; TEMP 98.4; O2SAT 98
--- NOTE | 2017-10-17 16:52 | HHI.FF ---
Face to Face Verification Diagnosis: (1) Generalized weakness (2) HTN (hypertension) Physical Therapy Order: Evaluate and Treat Home Health Nursing Order: Medical education Nursing assessment with vital signs Instructions: patient will need home health nurse for medication management to communicate with primary care doctor and/or police officer crime prevention I have seen patient Krishna Bates on 10/17/17. My clinical findings support the need for the requested home health care services because: Med compliance is questionable Limited ability to care for self I certify that my clinical findings support that this patient is homebound because: Unsafe to leave home unassisted Sahil Rose MD Oct 17, 2017 16:52
[2017-10-17] MEDS ORDERED: ECASA81 PO (16:56)
[2017-10-17] MEDS ORDERED: METO25TA3 PO (16:56)
--- NOTE | 2017-10-17 17:04 | HHI.PR ---
Subjective Remarks Patient seen this morning using [employer] top lift cutter over the phone, as well as family. Patient says she is feeling all right today. Denies any chest pain. She reports that she had some diffuse muscle pain using statin medication. She would like to forego this medication for now, we'll discuss with primary care when she follows up. We discussed possibly using CoQ10 to prevent muscle aches. She again will discuss with primary care. Objective Vital Signs Date Time Temp Pulse Resp B/P (MAP) Pulse Ox O2 Delivery O2 Flow Rate FiO2 10/17/17 12:50 98.4 58 16 108/64 (79) 98 10/17/17 08:00 98.0 57 16 114/62 (79) 96 10/17/17 05:01 98.1 52 16 109/58 (75) 98 10/17/17 03:00 73 10/17/17 02:00 64 10/17/17 00:04 72 10/16/17 23:57 98.2 70 16 119/71 (87) 98 10/16/17 20:51 62 16 96/54 (68) 98 10/16/17 20:02 75 10/16/17 19:00 56 16 96/50 (65) 96 10/16/17 18:00 60 96/52 (67) 10/16/17 17:15 55 20 72/47 (55) 96 I/O 10/16/17 10/16/17 10/16/17 10/17/17 10/17/17 10/17/17 07:00 15:00 23:00 07:00 15:00 23:00 Intake Total 240 ml Balance 240 ml Intake Oral 240 ml # Voids 3 4 Result Diagram: 10/17/1744010/17/17440 Objective Remarks GENERAL: patient sitting up in bed. Appears comfortable. SKIN: Warm and dry. HEAD: Normocephalic. EYES: No scleral icterus. No injection or drainage. NECK: Supple, trachea midline. No JVD. CARDIOVASCULAR: Regular rate and rhythm without murmurs, gallops, or rubs. RESPIRATORY: Breath sounds equal bilaterally. No accessory muscle use. GASTROINTESTINAL: Abdomen soft, non-tender, nondistended. MUSCULOSKELETAL: No cyanosis, or edema. BACK: Nontender without obvious deformity. No CVA tenderness. A/P Assessment and Plan // HTN: Uncontrolled. Pt w/ known h/o Non-compliance w/ meds, recent admit 10/13 -10/14/17 for Uncontrolled HTN, d/c'd on Norvasc 5mg, now w/ recurrence. BP 190' s on arrival, s/p NTG w/ improvement, BP now 160's. Start low-dose antihypertensive medications as pt seemingly sensitive to meds. Monitor BP. Telemetry. = The very sensitive to medication. Low blood pressures in the 110s systolic today on only metoprolol. We'll send home with metoprolol. Follow with primary care. // Chest Pain: Acute onset of substernal chest pain w/ palpitations, reproducible on exam. R/o ACS. Check serial enzymes, NTG/Morphine. Currently chest pain free. = Status post cardiac catheterization which is negative for significant stenosis. Cleared for discharge by cardiology // Elevated Trop: Trop 0.27, EKG w/ no acute ischemia, possible strain from uncontrolled HTN, however R/o underlying ischemia. Check serial enzymes for trend. Consult Cardiology for further recommendations, possible intervention. Echocardiogram with normal ejection fraction. 6065 percent. Mild aortic valve regurgitation. Discharge home with metoprolol, aspirin. Follow with primary care and cardiology. //Hyperlipidemia. HDL 50, LDL 137. Patient refuses statin medication. We will send home without statin. She will discuss with her primary care on restarting this, possibly adding CoQ10 //Hypokalemia: K+ 3.4, repeat labs in am, replace as needed. = Potassium 3.7 Resolved after replacement. //DVT Prophylaxis: Heparin sq Discharge Planning discharge home with home health, family.activity as tolerated. Heart healthy diet. Please see discharge medication reconciliation for medications. Follow with primary care and cardiology. Sahil Rose MD Oct 17, 2017 17:04
[2017-10-17] MEDS ORDERED: IOHEXOL 350 MG/ML 50 ML BTL (for Cath Lab) OTHER ONE (18:30)
== END 2017-10-17 18:31 | disposition home health service (06) ==
LOC: NEPC 22:48 → NEDA 10-16 01:20 → INTOOBSV 10-16 01:20 → HCIN 10-16 03:00
PROVIDERS: ADMIT Internal Medicine; ATTEND Internal Medicine
DX: I10 Essential (primary) hypertension (principal); R07.9 Chest pain, unspecified; I21.4 Non-ST elevation (NSTEMI) myocardial infarction; R74.8 Abnormal levels of other serum enzymes; I25.10 Atherosclerotic heart disease of native coronary artery without angina pectoris; E87.6 Hypokalemia; E78.5 Hyperlipidemia, unspecified; I35.1 Nonrheumatic aortic (valve) insufficiency; Z79.82 Long term (current) use of aspirin; Z91.14 Patient's other noncompliance with medication regimen; Z90.710 Acquired absence of both cervix and uterus
CPT/HCPCS: 71045; 80048; 80053; 80061; 82550; 82552; 83735; 84484; 85025; 85610; 85730; 93005; 93306; 93458; 97162; 99152; 99285; C1769; C1893; G0378; G8987; G8988; J1644; J2250; J3010; J7030; Q9967

== ENCOUNTER 2017-11-27 02:01 | Emergency (ER) | payer OTHER ==
[~2017-11-27 02:01] MED LIST changes: -AMLO5 PO; +ECASA81 PO; +METO25TA3 PO; -PROT40TA PO
[2017-11-27 02:06] VITALS: BP 193/83; PULSE 76; RESP 16; TEMP 97.5; O2SAT 100
--- NOTE | 2017-11-27 02:43 | PD ---
HPI . Chest pain and palpitations Chief Complaint: Chest Pain Time Seen by Provider: 02:14 Travel History International Travel<30 days: No Contact w/Intl Traveler<30days: No Traveled to known affect area: No History of Present Illness HPI This patient is brought in by her son with a chief complaint of chest pain and palpitations. Onset was about 10 PM. Symptoms have persisted since that time. No known modifying factors. Symptoms are mild. PFSH Past Medical History Blood Disorders: No Anxiety: No Cancer: No Cardiovascular Problems: Yes (HTN) High Cholesterol: Yes Endocrine: No Genitourinary: No Hypertension: Yes Immune Disorder: No Musculoskeletal: No Neurologic: No Psychiatric: No Reproductive: No Respiratory: No Tetanus Vaccination: Unknown Influenza Vaccination: Yes Menopausal: Yes : 2 Para: 2 Past Surgical History AICD: No Arteriovenous Shunt: No Eye Surgery: Yes (bilateral cataracts 2017) Gynecologic Surgery: Yes (Hystorectomy 10 years ago) Hysterectomy: Yes Insulin Pump: No Joint Replacement: No Pacemaker: No Other Surgery: No Social History Alcohol Use: No Tobacco Use: No Substance Use: No Allergies-Medications (Allergen,Severity, Reaction): Coded Allergies: No Known Allergies (Verified Allergy, Unknown, 11/27/17) Reported Meds & Prescriptions Reported Meds & Active Scripts Active Aspirin DR (Aspirin) 81 Mg Tabdr 81 Mg PO DAILY 30 Days Reported Losartan (Losartan Potassium) 50 Mg Tab 50 Mg PO DAILY Review of Systems Except as stated in HPI: all other systems reviewed are Neg Cardiovascular: Positive: Chest Pain or Discomfort, Palpitations Physical Exam Narrative GENERAL: Awake and alert. SKIN: warm/dry. HEAD: Normocephalic. Atraumatic. EYES: Pupils equal and round. No scleral icterus. No injection or drainage. ENT: No nasal bleeding or discharge. Mucous membranes pink and moist. NECK: Trachea midline. Full range of motion without pain.. CARDIOVASCULAR: Regular rate and rhythm. RESPIRATORY: No accessory muscle use. Clear to auscultation. Breath sounds equal bilaterally. MUSCULOSKELETAL: No obvious deformities. NEUROLOGICAL: Awake and alert. No obvious cranial nerve deficits. Motor grossly within normal limits. Normal speech. PSYCHIATRIC: Appropriate mood and affect; insight and judgment normal. Data Data Last Documented VS Vital Signs Date Time Temp Pulse Resp B/P (MAP) Pulse Ox O2 Delivery O2 Flow Rate FiO2 11/27/17 02:06 97.5 76 16 193/83 (119) 100 Room Air Orders Orders Basic Metabolic Panel (Bmp) (11/27/17 02:31) Complete Blood Count With Diff (11/27/17 02:31) Magnesium (Mg) (11/27/17 02:31) Troponin I (11/27/17 02:31) Chest, Single Ap (11/27/17 02:31) Ecg Monitoring (11/27/17 02:31) Iv Access Insert/Monitor (11/27/17 02:31) Oximetry (11/27/17 02:31) Aspirin Chew (Aspirin Chew) (11/27/17 02:45) Sodium Chloride 0.9% Flush (Ns Flush) (11/27/17 02:45) Lorazepam Inj (Ativan Inj) (11/27/17 02:45) Labs Laboratory Tests Test 11/27/17 02:41 White Blood Count 8.5 TH/MM3 Red Blood Count 4.35 MIL/MM3 Hemoglobin 13.2 GM/DL Hematocrit 38.6 % Mean Corpuscular Volume 88.8 FL Mean Corpuscular Hemoglobin 30.5 PG Mean Corpuscular Hemoglobin Concent 34.3 % Red Cell Distribution Width 13.7 % Platelet Count 268 TH/MM3 Mean Platelet Volume 7.2 FL Neutrophils (%) (Auto) 60.9 % Lymphocytes (%) (Auto) 29.4 % Monocytes (%) (Auto) 7.4 % Eosinophils (%) (Auto) 2.0 % Basophils (%) (Auto) 0.3 % Neutrophils # (Auto) 5.2 TH/MM3 Lymphocytes # (Auto) 2.5 TH/MM3 Monocytes # (Auto) 0.6 TH/MM3 Eosinophils # (Auto) 0.2 TH/MM3 Basophils # (Auto) 0.0 TH/MM3 CBC Comment DIFF FINAL Differential Comment Blood Urea Nitrogen 13 MG/DL Creatinine 0.61 MG/DL Random Glucose 114 MG/DL Calcium Level 9.0 MG/DL Magnesium Level 2.3 MG/DL Sodium Level 135 MEQ/L Potassium Level 3.7 MEQ/L Chloride Level 100 MEQ/L Carbon Dioxide Level 27.1 MEQ/L Anion Gap 8 MEQ/L Estimat Glomerular Filtration Rate 95 ML/MIN Troponin I LESS THAN 0.02 NG/ML MDM Medical Decision Making Medical Screen Exam Complete: Yes Emergency Medical Condition: Yes Medical Record Reviewed: Yes (this patient was admitted here 10/13-10/14 for hypertension. She was admitted again on 10/16-10/17 for chest pain. She had an elevated troponin which remained elevated throughout her hospital course. She had an echo which showed an ejection fraction of 60-65% and a cardiac catheterization which showed clean coronaries.) Interpretation(s) EKG shows a sinus arrhythmia with a ventricular rate of 72. No acute ischemic changes. Differential Diagnosis Differential diagnosis of chest pain includes but is not limited to musculoskeletal pain, pulmonary embolism, acute coronary syndrome, pneumonia, pleurisy Narrative Course This patient presents with chest pain and palpitations. She has had a recent negative cardiac workup including an echo and a cardiac catheterization. The likelihood of ACS in this setting is very small. CBC & BMP Diagram 11/27/17 02:41 Calcium Level 9.0, Magnesium Level 2.3 trop < 0.02 CXR neg for acute finding. The patient is resting comfortably following Ativan. She will be discharged home. Diagnosis Primary Impression: Chest pain Qualified Codes: R07.9 - Chest pain, unspecified Additional Impression: Heart palpitations Patient Instructions: General Instructions, Heart Palpitations (DC) Disposition: 01 DISCHARGE HOME Condition: Stable Laura Munguia MD Nov 27, 2017 02:43
[2017-11-27] MEDS ORDERED: SODIUM CHLORIDE 0.9% FLUSH 10 ML FLUSH IVF PRN (02:45)
[2017-11-27] MEDS ORDERED: LORazepam 2 MG/ML VIAL IV PUSH ONE (02:45)
[2017-11-27] MEDS ORDERED: ASPIRIN 81 MG CHEW TAB PO ONE (02:45)
--- NOTE | 2017-11-27 02:50 | RADRPT ---
EXAM DATE/TIME: 11/27/2017 02:40 [facility] COMPARISON: CHEST SINGLE AP, October 15, 2017, 23:43. INDICATIONS : Chest pain MEDICAL HISTORY : Hypertension. Hypercholesterolemia. SURGICAL HISTORY : Hysterectomy. ENCOUNTER: [facility] ACUITY: 1 day PAIN SCORE: 2/10 LOCATION: Bilateral chest FINDINGS: A single view of the chest demonstrates the lungs to be symmetrically aerated without evidence of mas s, infiltrate or effusion. The cardiomediastinal contours are unremarkable. Osseous structures are intact. CONCLUSION: 1. No active disease. Mildly tortuous aorta. Jose Kay MD on November 27, 2017 at 2:46 Board Certified Radiologist. This report was verified electronically.
[2017-11-27] MEDS ORDERED: LOSA50TA PO (02:51)
[2017-11-27 03:02] LABS: AUTOMATED NEUTROPHIL # 5.2 TH/MM3 (1.8-7.7); BASOPHIL % 0.3 % (0.0-2.0); EOSINOPHIL # 0.2 TH/MM3 (0-0.4); HEMATOCRIT 38.6 % (35.0-46.0); HEMOGLOBIN 13.2 GM/DL (11.6-15.3); LYMPH % 29.4 % (9.0-44.0); LYMPHOCYTE # 2.5 TH/MM3 (1.0-4.8); MEAN CELL VOLUME 88.8 FL (80.0-100.0); MEAN CORPUSCULAR HEMOGLOBIN 30.5 PG (27.0-34.0); MEAN CORPUSCULAR HGB CONC 34.3 % (32.0-36.0); MEAN PLATELET VOLUME 7.2 FL (7.0-11.0); MONO % 7.4 % (0.0-8.0); MONOCYTE # 0.6 TH/MM3 (0-0.9); NEUT % 60.9 % (16.0-70.0); PLATELET COUNT 268 TH/MM3 (150-450); RED BLOOD COUNT 4.35 MIL/MM3 (4.00-5.30); RED CELL DISTRIBUTION WIDTH 13.7 % (11.6-17.2); WHITE BLOOD COUNT 8.5 TH/MM3 (4.0-11.0)
[2017-11-27 03:26] LABS: BICARBONATE 27.1 MEQ/L (21.0-32.0); BLOOD UREA NITROGEN 13 MG/DL (7-18); CHLORIDE 100 MEQ/L (98-107); CREATININE 0.61 MG/DL (0.50-1.00); GLOMERULAR FILTRATION RATE 95 ML/MIN (>89); GLUCOSE,RANDOM 114 MG/DL (74-106); MAGNESIUM 2.3 MG/DL (1.5-2.5); SODIUM (NA) 135 MEQ/L (136-145)
[2017-11-27 03:29] LABS: TROPONIN I LESS THAN 0.02 NG/ML (0.02-0.05)
[2017-11-27 04:00] VITALS: BP 123/65
--- NOTE | 2017-11-27 15:18 | EKG ---
Date Performed: 11/27/2017 Time Performed: 02:22:12 PTAGE: 77 years EKG: Sinus rhythm WITH OCCASIONAL SUPRAVENTRICULAR PREMATURE COMPLEXES MARKED LEFT AXIS DEVIATION. Since previous trac ing, no significant change noted ABNORMAL ECG PREVIOUS TRACING : 10/16/2017 05.57 DOCTOR: Ward Díaz Interpretating Date/Time 11/27/2017 15:16:54
== END 2017-11-27 04:00 | disposition home or self-care (01) ==
LOC: NEPE 02:01
DX: R07.9 Chest pain, unspecified (principal); R00.2 Palpitations; I10 Essential (primary) hypertension; Z79.899 Other long term (current) drug therapy
CPT/HCPCS: 71045; 80048; 83735; 84484; 85025; 93005; 96374; 99285; J2060

== ENCOUNTER 2017-12-17 05:34 | Emergency (ER) | payer OTHER ==
[~2017-12-17] VITALS: Ht 154.9 cm; Wt 62.0 kg
[~2017-12-17 05:34] MED LIST changes: +LOSA50TA PO; -METO25TA3 PO
[2017-12-17 05:44] VITALS: BP 155/72; PULSE 69; RESP 16; TEMP 97.4; O2SAT 100
[2017-12-17] MEDS ORDERED: CLON0.1T PO (06:34)
[2017-12-17 06:35] VITALS: BP 167/73; PULSE 66; RESP 14; O2SAT 97
[2017-12-17] MEDS ORDERED: SODIUM CHLOR 0.9% 250 ML INJ 250 ML IV ONE (07:15)
[2017-12-17] MEDS ORDERED: SODIUM CHLORIDE 0.9% FLUSH 10 ML FLUSH IVF PRN (07:15)
--- NOTE | 2017-12-17 07:21 | PD ---
HPI Chief Complaint: Hypertension Time Seen by Provider: 06:57 Travel History International Travel<30 days: No Contact w/Intl Traveler<30days: No Traveled to known affect area: No History of Present Illness HPI Patient is a 77-year-old female who presents emergency department with her son for elevated blood pressure. The patient has been in the emergency department approximately 4-5 times since New Year's according to the son for chest pain and elevated blood pressure. The patient is currently on losartan 50 mg once a day, was recently prescribed clonidine as needed for elevated blood pressure. The patient states she had a dry throat last night and palpitations, took her clonidine because her blood pressure was elevated. The blood pressure has improved, she is currently asymptomatic except for sore throat and dry mouth. She denies any chest pain currently, shortness breath, nausea, vomiting, or abdominal pain. The patient recently changed physicians. Symptoms are moderate. Most of the history is obtained from the son. PFSH Past Medical History Blood Disorders: No Anxiety: No Cancer: No Cardiovascular Problems: Yes (HTN) High Cholesterol: Yes Endocrine: No Genitourinary: No Hypertension: Yes Immune Disorder: No Musculoskeletal: No Neurologic: No Psychiatric: No Reproductive: No Respiratory: No Menopausal: Yes : 2 Para: 2 Past Surgical History AICD: No Arteriovenous Shunt: No Eye Surgery: Yes (bilateral cataracts 2017) Gynecologic Surgery: Yes Hysterectomy: Yes Insulin Pump: No Joint Replacement: No Pacemaker: No Other Surgery: No Social History Alcohol Use: No Tobacco Use: No Substance Use: No Allergies-Medications (Allergen,Severity, Reaction): Coded Allergies: No Known Allergies (Verified Allergy, Unknown, 12/17/17) Reported Meds & Prescriptions Reported Meds & Active Scripts Active Aspirin DR (Aspirin) 81 Mg Tabdr 81 Mg PO DAILY 30 Days Reported Clonidine (Clonidine HCl) 0.1 Mg Tab 0.1 Mg PO BID Losartan (Losartan Potassium) 50 Mg Tab 50 Mg PO DAILY Review of Systems Except as stated in HPI: all other systems reviewed are Neg General / Constitutional: No: Fever HENT: Positive: Sore Throat Cardiovascular: Positive: Palpitations, No: Chest Pain or Discomfort Respiratory: No: Shortness of Breath Gastrointestinal: No: Nausea, Vomiting, Abdominal Pain Neurologic: No: Change in Mentation Physical Exam Narrative GENERAL: Awake, alert, pleasant 77-year-old female appears her stated age and is in no acute respiratory distress. SKIN: Focused skin assessment warm/dry. HEAD: Atraumatic. Normocephalic. EYES: Pupils equal and round. 2 mm bilateral reactive. ENT: No nasal bleeding or discharge. Cobblestoning in the posterior pharynx but no exudate noted. NECK: Trachea midline. No JVD. CARDIOVASCULAR: Regular rate and rhythm. No murmur appreciated. RESPIRATORY: No accessory muscle use. Clear to auscultation. Breath sounds equal bilaterally. GASTROINTESTINAL: Abdomen soft, non-tender, nondistended. No rebound tenderness. MUSCULOSKELETAL: No obvious deformities. No clubbing. No cyanosis. No edema. NEUROLOGICAL: Awake and alert. No obvious cranial nerve deficits. Motor grossly within normal limits. Nonfocal. PSYCHIATRIC: Appropriate mood and affect; insight and judgment normal. Data Data Last Documented VS Vital Signs Date Time Temp Pulse Resp B/P (MAP) Pulse Ox O2 Delivery O2 Flow Rate FiO2 12/17/17 08:36 55 18 139/64 (89) 99 Room Air 12/17/17 05:44 97.4 Orders Orders Electrocardiogram (12/17/17 07:15) Ckmb (Isoenzyme) Profile (12/17/17 07:15) Complete Blood Count With Diff (12/17/17 07:15) Comprehensive Metabolic Panel (12/17/17 07:15) Magnesium (Mg) (12/17/17 07:15) Prothrombin Time / Inr (Pt) (12/17/17 07:15) Act Partial Throm Time (Ptt) (12/17/17 07:15) Ecg Monitoring (12/17/17 07:15) Bilateral Bp Monitoring (12/17/17 07:15) Iv Access Insert/Monitor (12/17/17 07:15) Oximetry (12/17/17 07:15) Oxygen Administration (12/17/17 07:15) Sodium Chloride 0.9% Flush (Ns Flush) (12/17/17 07:15) Sodium Chlor 0.9% 250 Ml Inj (Ns 250 Ml (12/17/17 07:15) CKMB (12/17/17 07:35) CKMB% (12/17/17 07:35) Labs Laboratory Tests Test 12/17/17 07:35 White Blood Count 7.1 TH/MM3 Red Blood Count 4.10 MIL/MM3 Hemoglobin 13.1 GM/DL Hematocrit 35.6 % Mean Corpuscular Volume 86.9 FL Mean Corpuscular Hemoglobin 32.0 PG Mean Corpuscular Hemoglobin Concent 36.8 % Red Cell Distribution Width 13.5 % Platelet Count 248 TH/MM3 Mean Platelet Volume 6.6 FL Neutrophils (%) (Auto) 69.7 % Lymphocytes (%) (Auto) 22.9 % Monocytes (%) (Auto) 5.9 % Eosinophils (%) (Auto) 1.2 % Basophils (%) (Auto) 0.3 % Neutrophils # (Auto) 4.9 TH/MM3 Lymphocytes # (Auto) 1.6 TH/MM3 Monocytes # (Auto) 0.4 TH/MM3 Eosinophils # (Auto) 0.1 TH/MM3 Basophils # (Auto) 0.0 TH/MM3 CBC Comment AUTO DIFF Differential Comment AUTO DIFF CONFIRMED Prothrombin Time 10.5 SEC Prothromb Time International Ratio 1.0 RATIO Activated Partial Thromboplast Time 25.9 SEC Blood Urea Nitrogen 12 MG/DL Creatinine 0.64 MG/DL Random Glucose 112 MG/DL Total Protein 7.5 GM/DL Albumin 3.7 GM/DL Calcium Level 8.8 MG/DL Magnesium Level 2.3 MG/DL Alkaline Phosphatase 54 U/L Aspartate Amino Transf (AST/SGOT) 24 U/L Alanine Aminotransferase (ALT/SGPT) 26 U/L Total Bilirubin 0.3 MG/DL Sodium Level 136 MEQ/L Potassium Level 4.0 MEQ/L Chloride Level 101 MEQ/L Carbon Dioxide Level 27.8 MEQ/L Anion Gap 7 MEQ/L Estimat Glomerular Filtration Rate 90 ML/MIN Total Creatine Kinase 116 U/L Creatine Kinase MB 2.9 NG/ML [facility] Medical Decision Making Medical Screen Exam Complete: Yes Emergency Medical Condition: Yes Medical Record Reviewed: Yes Interpretation(s) EKG reveals sinus bradycardia with a heart rate of 57. Nonspecific T wave changes. Inverted T waves noted in lead V4, V5, V6, 2, 3, and aVF. Laboratory Tests Test 12/17/17 07:35 White Blood Count 7.1 TH/MM3 Red Blood Count 4.10 MIL/MM3 Hemoglobin 13.1 GM/DL Hematocrit 35.6 % Mean Corpuscular Volume 86.9 FL Mean Corpuscular Hemoglobin 32.0 PG Mean Corpuscular Hemoglobin Concent 36.8 % Red Cell Distribution Width 13.5 % Platelet Count 248 TH/MM3 Mean Platelet Volume 6.6 FL Neutrophils (%) (Auto) 69.7 % Lymphocytes (%) (Auto) 22.9 % Monocytes (%) (Auto) 5.9 % Eosinophils (%) (Auto) 1.2 % Basophils (%) (Auto) 0.3 % Neutrophils # (Auto) 4.9 TH/MM3 Lymphocytes # (Auto) 1.6 TH/MM3 Monocytes # (Auto) 0.4 TH/MM3 Eosinophils # (Auto) 0.1 TH/MM3 Basophils # (Auto) 0.0 TH/MM3 CBC Comment AUTO DIFF Differential Comment AUTO DIFF CONFIRMED Prothrombin Time 10.5 SEC Prothromb Time International Ratio 1.0 RATIO Activated Partial Thromboplast Time 25.9 SEC Blood Urea Nitrogen 12 MG/DL Creatinine 0.64 MG/DL Random Glucose 112 MG/DL Total Protein 7.5 GM/DL Albumin 3.7 GM/DL Calcium Level 8.8 MG/DL Magnesium Level 2.3 MG/DL Alkaline Phosphatase 54 U/L Aspartate Amino Transf (AST/SGOT) 24 U/L Alanine Aminotransferase (ALT/SGPT) 26 U/L Total Bilirubin 0.3 MG/DL Sodium Level 136 MEQ/L Potassium Level 4.0 MEQ/L Chloride Level 101 MEQ/L Carbon Dioxide Level 27.8 MEQ/L Anion Gap 7 MEQ/L Estimat Glomerular Filtration Rate 90 ML/MIN Total Creatine Kinase 116 U/L Creatine Kinase MB 2.9 NG/ML Differential Diagnosis Differential diagnosis includes hypertension, hypertensive urgency, hypertensive emergency, acute renal failure, ACS, palpitations, arrhythmia. Narrative Course IV was established, labs are drawn and sent, and the patient was placed on cardiac telemetry monitoring and continuous pulse oximetry monitoring. Patient' s blood pressure is currently 120s over 60s, she is currently asymptomatic. Patient may need increase in losartan and discontinuation of clonidine. Labs are unremarkable. The patient's blood pressure was reevaluated, was 120s over 70s. The patient's physician was going to increase her losartan 50 mg in the morning and 25 mg at night, hour, the patient did not receive her prescription. I think it is reasonable to add losartan 25 mg at night, continue to monitor blood pressure. She requested that her cholesterol level be checked, however, I evaluated her EMR, she had cholesterol evaluation in October 2017 upon admission. LDL is mildly elevated, otherwise, labs are unremarkable. She is stable for outpatient follow-up. Diagnosis Primary Impression: Hypertension Qualified Codes: I10 - Essential (primary) hypertension Patient Instructions: General Instructions Additional Instructions: Add losartan 25 mg at night. Please provide the patient's family and the patient a copy of her EKG and lab results at discharge. Follow-up with her primary physician. Return if symptoms worsen or progress. Med/Other Pt SpecificInfo: Prescription(s) given Scripts Losartan (Losartan) 25 Mg Tab 25 MG PO HS for Blood Pressure Management, #30 TAB 0 Refills Prov: Izaiah Otto MD 12/17/17 Disposition: DISCHARGE HOME Condition: Stable Izaiah Otto MD Dec 17, 2017 07:21
[2017-12-17 07:30] VITALS: BP 124/58; PULSE 60; RESP 18; O2SAT 98
[2017-12-17 07:57] LABS: AUTOMATED NEUTROPHIL # 4.9 TH/MM3 (1.8-7.7); BASOPHIL % 0.3 % (0.0-2.0); EOSINOPHIL # 0.1 TH/MM3 (0-0.4); EOSINOPHIL % 1.2 % (0.0-4.0); HEMATOCRIT 35.6 % (35.0-46.0); HEMOGLOBIN 13.1 GM/DL (11.6-15.3); LYMPH % 22.9 % (9.0-44.0); LYMPHOCYTE # 1.6 TH/MM3 (1.0-4.8); MEAN CELL VOLUME 86.9 FL (80.0-100.0); MEAN PLATELET VOLUME 6.6 FL (7.0-11.0); MONO % 5.9 % (0.0-8.0); MONOCYTE # 0.4 TH/MM3 (0-0.9); NEUT % 69.7 % (16.0-70.0); PLATELET COUNT 248 TH/MM3 (150-450); RED CELL DISTRIBUTION WIDTH 13.5 % (11.6-17.2); WHITE BLOOD COUNT 7.1 TH/MM3 (4.0-11.0)
[2017-12-17 07:58] LABS: MEAN CORPUSCULAR HGB CONC 36.8 % (32.0-36.0)
[2017-12-17 08:05] LABS: PROTHROMBIN TIME - PATIENT 10.5 SEC (9.8-11.6)
[2017-12-17 08:11] LABS: ALBUMIN 3.7 GM/DL (3.4-5.0); ALT (GPT) 26 U/L (10-53); AST (GOT) 24 U/L (15-37); BICARBONATE 27.8 MEQ/L (21.0-32.0); BLOOD UREA NITROGEN 12 MG/DL (7-18); CALCIUM 8.8 MG/DL (8.5-10.1); CHLORIDE 101 MEQ/L (98-107); CREATININE 0.64 MG/DL (0.50-1.00); GLOMERULAR FILTRATION RATE 90 ML/MIN (>89); GLUCOSE,RANDOM 112 MG/DL (74-106); MAGNESIUM 2.3 MG/DL (1.5-2.5); SODIUM (NA) 136 MEQ/L (136-145)
[2017-12-17 08:13] LABS: ALKALINE PHOSPHATASE 54 U/L (45-117); TOTAL BILIRUBIN ADULT 0.3 MG/DL (0.2-1.0); TOTAL PROTEIN 7.5 GM/DL (6.4-8.2)
[2017-12-17 08:36] VITALS: BP 139/64; PULSE 55; RESP 18; O2SAT 99
[2017-12-17] MEDS ORDERED: LOSA25TA PO (09:25)
--- NOTE | 2017-12-17 15:01 | EKG ---
Date Performed: 12/17/2017 Time Performed: 07:45:04 PTAGE: 77 years EKG: SINUS BRADYCARDIA MARKED LEFT AXIS DEVIATION PATTERN CONSISTENT WITH PULMONARY DISEASE Nons pecific T wave changes ABNORMAL ECG Compared to prior electrocardiogram, Nonspecific T wave changes a re now present PREVIOUS TRACING : 11/27/2017 02.22 DOCTOR: Vernon Escamilla Interpretating Date/Time 12/17/2017 14:59:16
== END 2017-12-17 09:55 | disposition home or self-care (01) ==
LOC: NEPE 05:34
DX: I10 Essential (primary) hypertension (principal); R00.1 Bradycardia, unspecified; J02.9 Acute pharyngitis, unspecified; R00.2 Palpitations; R94.31 Abnormal electrocardiogram [ECG] [EKG]; E78.00 Pure hypercholesterolemia, unspecified; Z79.82 Long term (current) use of aspirin; Z79.899 Other long term (current) drug therapy
CPT/HCPCS: 80053; 82550; 82552; 83735; 85025; 85610; 85730; 93005; 96360; 99284; J7050

== ENCOUNTER 2017-12-20 07:19 | Emergency (ER) | payer OTHER ==
[~2017-12-20] VITALS: Ht 160 cm; Wt 60.0 kg
[~2017-12-20 07:19] MED LIST changes: +CLON0.1T PO; +LOSA25TA PO
[2017-12-20 07:25] VITALS: BP 185/72; PULSE 77; RESP 16; TEMP 97.5; O2SAT 100
[2017-12-20 08:19] VITALS: BP 173/73; PULSE 76; RESP 16; O2SAT 100
--- NOTE | 2017-12-20 09:12 | PD ---
HPI Chief Complaint: Hypertension Time Seen by Provider: 08:42 Travel History International Travel<30 days: No Contact w/Intl Traveler<30days: No Traveled to known affect area: No History of Present Illness HPI 77-year-old presents emerged from complaining about her blood pressure. Blood pressures been unstable. She has been taking her arm once a day or twice a day , sometimes half a pill twice a day. She is keeping a log of her blood pressure. She feels facial fullness when her blood pressure gets high. Only she been taking clonidine as well. She is lots of questions about how to take her medicine, what the parameters are. She is on point with her primary physician on . No chest pain. No trouble breathing. No other complaints. History Past Medical History Narrative Medical Hypertension Influenza Vaccination: Yes Menopausal: Yes : 2 Para: 2 Social History Alcohol Use: No Tobacco Use: No Allergies-Medications (Allergen,Severity, Reaction): Coded Allergies: No Known Allergies (Verified Allergy, Unknown, 12/20/17) Reported Meds & Prescriptions Reported Meds & Active Scripts Active Losartan (Losartan Potassium) 25 Mg Tab 25 Mg PO HS Aspirin DR (Aspirin) 81 Mg Tabdr 81 Mg PO DAILY 30 Days Reported Clonidine (Clonidine HCl) 0.1 Mg Tab 0.1 Mg PO BID Losartan (Losartan Potassium) 50 Mg Tab 50 Mg PO DAILY Review of Systems Except as stated in HPI: all other systems reviewed are Neg Physical Exam Narrative GENERAL: Well-appearing 77-year-old woman, no acute distress. SKIN: Warm and dry. CARDIOVASCULAR: Warm and well perfused. RESPIRATORY: Normal rate and effort. MUSCULOSKELETAL: No deformities. NEUROLOGICAL: Awake and alert. No gross deficits. Data Data Last Documented VS Vital Signs Date Time Temp Pulse Resp B/P (MAP) Pulse Ox O2 Delivery O2 Flow Rate FiO2 12/20/17 08:19 76 16 173/73 (106) 100 Room Air 12/20/17 07:25 97.5 MDM Medical Decision Making Medical Screen Exam Complete: Yes Emergency Medical Condition: Yes Differential Diagnosis Hypertension, hypertensive crisis, hypertensive emergency Narrative Course Medical decision making INITIAL: 77-year-old woman, presents to the ED complaining of elevated blood pressure. Looks well. Recommend she take her blood pressure medicine regularly scheduled. She is prescription for clonidine. I recommend she not take this unless her blood pressure significantly elevated. Follow with her primary doctor on . Diagnosis Primary Impression: Hypertension Additional Instructions: Take your losartan once daily as prescribed. Hold your losartan, do not take, if your systolic blood pressures less than 100 , your diastolic blood pressure is less than 60, or your heart rate is less than 50. If your blood pressure is significantly elevated, systolic blood pressure greater than 180, take clonidine as prescribed, 1 tablet. Take your blood pressure no more than twice daily. Write this down and your blood pressure log as discussed. Take this log with you to your primary physician. Return to the emergency department for any new or worsening symptoms. Med/Other Pt SpecificInfo: No Change to Meds Disposition: 01 DISCHARGE HOME Condition: Stable Bishnu Dinh MD Dec 20, 2017 09:12
== END 2017-12-20 09:46 | disposition home or self-care (01) ==
LOC: NEPK 07:19
DX: I10 Essential (primary) hypertension (principal)
CPT/HCPCS: 99283